=== PATIENT | female | born 1965 | race Caucasian/White ===

== ENCOUNTER 2019-05-18 10:46 | Inpatient (IN) | payer BC ==
[~2019-05-18] VITALS: Ht 165.1 cm; Wt 107.2 kg
[2019-05-18] VITALS (12 sets, daily range): BP systolic 119–155; BP diastolic 74–100
[2019-05-18] MEDS ORDERED: IOHEXOL 300 MG/ML 50 ML VIAL. ONE (11:37)
[2019-05-18] MEDS ORDERED: SURGICEL HEMOSTAT 4X8 EACH. ONE (11:37)
[2019-05-18] MEDS ORDERED: GLUCAGON,HUMAN RECOMBINANT 1 MG/ML VIAL. ONE (11:37)
[2019-05-18] MEDS ORDERED: BUPIVACAINE-EPI 0.25%-1:200000 MPF 30 ML VIAL. ONE (11:40)
[2019-05-18] MEDS ORDERED: IV RINGERS,LACTATED 1000ML 1,000 ML IV SCH (12:41)
[2019-05-18] MEDS ORDERED: PROCHLORPERAZINE 10 MG/2 ML VIAL. IV PRN (12:45)
[2019-05-18] MEDS ORDERED: HYDROmorphone 2 MG/ML VIAL IV PRN (12:45)
[2019-05-18] MEDS ORDERED: fentaNYL PF VIAL 100 MCG/2 ML VIAL IV PRN (12:45)
[2019-05-18] MEDS ORDERED: LIDOCAINE 1% PF 2 ML VIAL. ID PRN (12:45)
[2019-05-18] MEDS ORDERED: MORPHINE SULFATE 2 MG/ML VIAL. IV PRN (12:45)
[2019-05-18] MEDS ORDERED: ONDANSETRON PF 4 MG/2 ML VIAL. IV PRN (12:45)
--- NOTE | 2019-05-18 12:45 | PDOC2 ---
CONSULT Date of Consult Date of Consult DATE: 05/18/19 TIME: 12:39 Reason for Consult Reason for Consult: symptomatic cholelithiasis Referring Physician Referring Physician: CHINTAN Identification/Chief Complaint Chief Complaint RUQ pain Source Source: Chart review, Patient History of Present Illness Reason for Visit: Torri is a 53 yo obese female with recent hx of abdominal pain. Seen in the [facility] ED earlier today where GB US showed cholelithiasis and some minimal GB wall changes. She is brought for cholecystectomy Past Medical History Cardiovascular: No pertinent hx Pulmonary: No pertinent hx GI: GERD Psych: Depression Past Surgical History Past Surgical History: No pertinent history Family History Family History: Cancer Social History No ALCOHOL: none Drugs: None Current Medications Current Medications Current Medications Cefazolin Sodium 3 gm/Dextrose 100 ml @ 200 mls/hr 1X PREOP PRN IV protocol; Start 05/19/19 at 06:00; Stop 05/19/19 at 15:00; Status UNV Glucagon (Glucagen) 1 mg STK-MED ONCE .ROUTE ; Start 05/18/19 at 11:37; Stop 05/18/19 at 12:38; Status DC Iohexol (Omnipaque 300 Mg/ml) 50 ml STK-MED ONCE .ROUTE ; Start 05/18/19 at 11:37; Stop 05/18/19 at 12:38; Status DC Cellulose (Surgicel Hemostat 4x8) 1 each STK-MED ONCE .ROUTE ; Start 05/18/19 at 11:37; Stop 05/18/19 at 12:38; Status DC ROS Review of System negative with exception of present complaints Physical Exam General: Alert, Oriented X3, No acute distress HEENT: Atraumatic Lungs: Normal air movement Heart: Regular rate Abdomen: Soft, Other (mldly TTP in the RUQ) Skin: Other (warm, dry) Images Images US from reviewed Assessment/Plan Assessment/Plan symptomatic cholelithiasis subacute cholecystitis obesity Explained risks of l/s cholecystectomy including but not limited to bleeding, infection, injury to bowel, liver or bile ducts with need for further surgery later, possible open, diarrhea post op. She will proceed Thanks for consult ОЛЕГ FRANKS MD May 18, 2019 12:45
[2019-05-18] MEDS ORDERED: SUCCINYLCHOLINE 200 MG/10 ML VIAL. ONE (12:52)
[2019-05-18] MEDS ORDERED: LIDOCAINE 2% PF 5 ML VIAL. ONE (12:52)
[2019-05-18] MEDS ORDERED: fentaNYL PF VIAL 100 MCG/2 ML VIAL ONE ×3 (12:52→14:26)
[2019-05-18] MEDS ORDERED: PROPOFOL 20 ML IV ONE (12:52)
[2019-05-18] MEDS ORDERED: ROCURONIUM 50 MG/5 ML VIAL. ONE (12:53)
[2019-05-18] MEDS ORDERED: ceFAZolin SODIUM 3 GM in IV DEXTROSE 5% 100ML 100 ML IV PRN (13:00)
[2019-05-18] MEDS ORDERED: DEXAMETHASONE SOD PHOS 4 MG/ML VIAL ONE (13:08)
[2019-05-18] MEDS ORDERED: ONDANSETRON PF 4 MG/2 ML VIAL. ONE (13:08)
[2019-05-18] MEDS ORDERED: DESFLURANE 61 TO 120 MINUTES IH ONE (13:08)
[2019-05-18] MEDS ORDERED: NEOSTIGMINE METHYLSULFATE 5 MG/5 ML SYRINGE. ONE (13:17)
[2019-05-18] MEDS ORDERED: GLYCOPYRROLATE 1 MG/5 ML VIAL. ONE (13:17)
[2019-05-18] MEDS ORDERED: KETOROLAC 30 MG/ML INJ FOR OR. INJ ONE (13:43)
--- NOTE | 2019-05-18 13:54 | RAD ---
EXAM: Intraoperative cholangiogram HISTORY: Cystectomy. COMPARISON: Sonogram obtained on the same date. FINDINGS: 4 fluoroscopic images were obtained during an intraoperative angiogram. The images demonstrate contrast opacification of the biliary tree. There is abrupt cut off involving the distal common bile duct immediately proximal to the ampulla. The total fluoroscopy time is 0.36 minutes. IMPRESSION: Intraoperative cholangiogram demonstrating an abrupt cut off of the distal common bile duct. Correlate for an obstructing lesion. Electronically signed by: Briana Bailey MD (05/18/2019 1:51 PM) [place] [id number]
[2019-05-18] MEDS: IV NORMAL SALINE 1000ML BAG 1,000 ML IV SCH (14:12)
[2019-05-18] MEDS: POTASSIUM CL 20MEQ-0.45% NACL 1,000 ML IV SCH (14:12)
[2019-05-18] MEDS ORDERED: NALOXONE 0.4 MG/ML VIAL. IV PRN (14:15)
[2019-05-18] MEDS ORDERED: IV DEXTROSE 5% 250 ML BAG. IV PRN (14:15)
[2019-05-18] MEDS ORDERED: oxyCODONE/APAP 5/325 1 TAB TABLET PO PRN (14:15)
[2019-05-18] MEDS ORDERED: 0.9 % SODIUM CHLORIDE 10 ML DISP.SYRIN. IV PRN (14:15)
[2019-05-18] MEDS ORDERED: DEXTROSE 50% 25 GM / 50ML DISP.SYRIN. IV PRN (14:15)
[2019-05-18] MEDS: fentaNYL PF VIAL 100 MCG/2 ML VIAL IV PRN ×4 (14:20→15:16)
--- NOTE | 2019-05-18 14:40 | PDOC ---
BRIEF OPERATIVE NOTE Date: May 18, 2019 Pre-Op Diagnosis symptomatic cholelithiasis, subacute cholecystitis Post-Op Diagnosis same with possible choledocholithiasis Procedure Performed l/s cholecystectomy with cholangiograms Surgeon Colby JOHNSTON Anesthesia Type: General Blood Loss 25cc IV Fluid 400cc Specimens Obtained GB Findings edematous GB with multiple stones, stones in the cystic duct, possible stone distal CBD Complications none Operative Note Wk # [id number] ОЛЕГ FRANKS MD May 18, 2019 14:39
[2019-05-18] MEDS: ENOXAPARIN 40 MG/0.4 ML SYRINGE. SQ SCH (15:00)
--- NOTE | 2019-05-18 15:25 | OP ---
DATE OF SURGERY: 05/18/2019 PREOPERATIVE DIAGNOSIS: Symptomatic cholelithiasis and subacute cholecystitis. POSTOPERATIVE DIAGNOSIS: Symptomatic cholelithiasis and subacute cholecystitis with possible choledocholithiasis. PROCEDURE: Laparoscopic cholecystectomy with cholangiogram. SURGEON: Reji Franks MD TECHNICIAN PREVENTATIVE MEDICINE: VICKIE Xiong ANESTHESIA: General endotracheal. ESTIMATED BLOOD LOSS: 25 mL. INTRAVENOUS FLUID: 400. INDICATIONS: The patient is a 53-year-old transferred from [place] with symptomatic cholelithiasis, brought for cholecystectomy. OPERATIVE FINDINGS: The liver was smooth and sharp. The gallbladder was edematous and distended. Cholangiogram showed a normal biliary tree; however, no contrast emptied into the duodenum despite giving 1 mg of glucagon. Remainder of the inspection of the abdomen failed to reveal abnormalities. DESCRIPTION OF PROCEDURE: The patient brought to the operating suite, given a general endotracheal anesthetic, the abdomen prepped and draped in usual sterile fashion. A supraumbilical incision was infiltrated with local anesthetic, incised and a 5 mm Visiport used to gain access into the abdominal cavity, taking care to avoid injury to abdominal contents. Pneumoperitoneum established. Camera inserted. Inspection carried out with results as noted above. With the table in reverse Trendelenburg rolled to the left, the epigastric, midclavicular, and lateral ports were placed under direct vision. The gallbladder was retracted superolaterally and the omental adhesions were carefully swept off with blunt and cautery dissection, avoiding injury to the adjacent bowel. The cystic duct and cystic artery were identified. The duct was clipped on the gallbladder side and opened. Two stones were milked from the cystic duct and good bile flow resulted. Cholangiograms were made. These showed a normal biliary tree, however, no spillage of contrast into the duodenum. In light of this, 1 mg of glucagon was given and after 2 minutes, circulation time, repeat films continued to show possible distal common duct stone. Given the patient's normal labs, preoperatively, I opted to not convert to an open procedure. Catheter removed and the cystic duct, clipped x 3 and divided, taking care to avoid injury or compromise the common duct. An anterior and posterior branch of the cystic artery were clipped and divided and gallbladder freed from the bed and placed in an EndoCatch bag. Hemostasis in the fossa with cautery and a piece of Surgicel. A 19-Citizen Of [place] round Nabil drain brought through the epigastric port out the lateral port, sewn to the skin with a silk stitch and left in the subhepatic space for postoperative drainage. Table returned to level. Gallbladder delivered through the epigastric incision. Epigastric incision closed with interrupted 0 Vicryl suture. Intra-abdominal pressure decreased to 6 cm of water. No bleeding from the epigastric closure or from the midclavicular or lateral port sites or the drain site. Abdomen decompressed. Cam removed, no bleeding seen. Skin incisions closed with subcuticular 4-0 Monocryl. Steri-Strips and sterile dressing applied. The patient awakened from her anesthetic and taken to the recovery room in satisfactory condition. REJI FRANKS MD DR: NAGA/abraham JOB#: [id number] / [id number]
[2019-05-18] MEDS ORDERED: MORPHINE SULFATE 2 MG/ML VIAL. ONE (15:39)
[2019-05-18] MEDS: oxyCODONE/APAP 5/325 1 TAB TABLET PO PRN (17:35)
--- NOTE | 2019-05-18 17:58 | PDOC1 ---
History and Physical Date of Admission Date of Admission DATE: 05/18/19 TIME: 17:49 Identification/Chief Complaint Chief Complaint seen in er in [facility] with several day hx RUQ DISCOMFORT, NOW WORSE Past Medical History Past Medical History Past Medical History Cardiovascular: No pertinent hx Pulmonary: No pertinent hx GI: GERD Psych: Depression Past Surgical History Past Surgical History: No pertinent history Family History Family History: Cancer//// father heart disease age 30 Social History No ALCOHOL: none Drugs: None Cardiovascular: No pertinent hx Pulmonary: No pertinent hx GI: GERD Heme/Onc: No pertinent hx Psych: Depression Rheumatologic: No pertinent hx Infectious disease: No pertinent hx Renal/: No pertinent hx Endocrine: No pertinent hx Past Surgical History Past Surgical History: No pertinent history Family History Family History: Cancer, Hypertension Social History Smoke: No ALCOHOL: none Drugs: None Current Medications Current Medications Current Medications Cefazolin Sodium 3 gm/Dextrose 100 ml @ 200 mls/hr 1X PREOP PRN IV protocol Last administered on 05/18/19at 13:13; Start 05/18/19 at 13:00; Stop 05/19/19 at 12:59 Glucagon (Glucagen) 1 mg STK-MED ONCE .ROUTE ; Start 05/18/19 at 11:37; Stop 05/18/19 at 12:38; Status DC Iohexol (Omnipaque 300 Mg/ml) 50 ml STK-MED ONCE .ROUTE ; Start 05/18/19 at 11:37; Stop 05/18/19 at 12:38; Status DC Cellulose (Surgicel Hemostat 4x8) 1 each STK-MED ONCE .ROUTE Last administered on 05/18/19at 13:52; Start 05/18/19 at 11:37; Stop 05/18/19 at 12:38; Status DC Bupivacaine HCl/ Epinephrine Bitart (Sensorcaine-Epi 0.25%-1:727446 Mpf) 30 ml STK-MED ONCE .ROUTE Last administered on 05/18/19at 13:47; Start 05/18/19 at 11:40; Stop 05/18/19 at 12:40; Status DC Ondansetron HCl (Zofran) 4 mg PRN Q6HRS PRN IV NAUSEA/VOMITING; Start 05/18/19 at 12:45; Stop 05/19/19 at 12:44 Fentanyl Citrate (Fentanyl 2ml Vial) 25 mcg PRN Q5MIN PRN IV MILD PAIN 1-3; Start 05/18/19 at 12:45; Stop 05/19/19 at 12:44 Fentanyl Citrate (Fentanyl 2ml Vial) 50 mcg PRN Q5MIN PRN IV MODERATE TO SEVERE PAIN Last administered on 05/18/19at 15:53; Start 05/18/19 at 12:45; Stop 05/19/19 at 12:44 Morphine Sulfate (Morphine Sulfate) 1 mg PRN Q10MIN PRN IV SEVERE PAIN 7-10 Last administered on 05/18/19at 15:53; Start 05/18/19 at 12:45; Stop 05/19/19 at 12:44 Ringer's Solution 1,000 ml @ 30 mls/hr Q24H IV ; Start 05/18/19 at 12:41; Stop 05/19/19 at 00:40 Lidocaine HCl (Xylocaine-Mpf 1% 2ml Vial) 2 ml 1X PRN PRN ID IV START; Start 05/18/19 at 12:45; Stop 05/19/19 at 12:44 Hydromorphone HCl (Dilaudid) 0.5 mg PRN Q10MIN PRN IV SEV PAIN, Second choice; Start 05/18/19 at 12:45; Stop 05/19/19 at 12:44 Prochlorperazine Edisylate (Compazine) 5 mg PACU PRN PRN IV NAUSEA, MRX1; Start 05/18/19 at 12:45; Stop 05/19/19 at 12:44 Propofol 20 ml @ As Directed STK-MED ONCE IV ; Start 05/18/19 at 12:52; Stop 05/18/19 at 12:53; Status DC Lidocaine HCl (Lidocaine Pf 2% Vial) 5 ml STK-MED ONCE .ROUTE ; Start 05/18/19 at 12:52; Stop 05/18/19 at 12:53; Status DC Fentanyl Citrate (Fentanyl 2ml Vial) 100 mcg STK-MED ONCE .ROUTE ; Start 05/18/19 at 12:52; Stop 05/18/19 at 12:53; Status DC Succinylcholine Chloride (Anectine) 200 mg STK-MED ONCE .ROUTE ; Start 05/18/19 at 12:52; Stop 05/18/19 at 12:53; Status DC Rocuronium [place] (Zemuron) 50 mg STK-MED ONCE .ROUTE ; Start 05/18/19 at 12:53; Stop 05/18/19 at 12:53; Status DC Ondansetron HCl (Zofran) 4 mg STK-MED ONCE .ROUTE ; Start 05/18/19 at 13:08; Stop 05/18/19 at 13:08; Status DC Dexamethasone Sodium Phosphate (Decadron) 4 mg STK-MED ONCE .ROUTE ; Start 05/18/19 at 13:08; Stop 05/18/19 at 13:08; Status DC Desflurane (Suprane) 60 ml STK-MED ONCE IH ; Start 05/18/19 at 13:08; Stop 05/18/19 at 13:08; Status DC Glycopyrrolate (Robinul) 1 mg STK-MED ONCE .ROUTE ; Start 05/18/19 at 13:17; Stop 05/18/19 at 13:17; Status DC Neostigmine Methylsulfate (Neostigmine Methylsulfate) 5 mg STK-MED ONCE .ROUTE ; Start 05/18/19 at 13:17; Stop 05/18/19 at 13:17; Status DC Ketorolac Tromethamine (Toradol For Or Only) 30 mg STK-MED ONCE INJ ; Start 05/18/19 at 13:43; Stop 05/18/19 at 13:43; Status DC Fentanyl Citrate (Fentanyl 2ml Vial) 100 mcg STK-MED ONCE .ROUTE ; Start 05/18/19 at 13:55; Stop 05/18/19 at 13:55; Status DC Diphenhydramine HCl (Benadryl) 25 mg PRN Q6HRS PRN PO ITCHING; Start 05/18/19 at 14:15 Enoxaparin Sodium (Lovenox 40mg Syringe) 40 mg Q24H SQ ; Start 05/18/19 at 15:00 Sodium Chloride (Normal Saline Flush) 3 ml QSHIFT PRN IV AFTER MEDS AND BLOOD DRAWS; Start 05/18/19 at 14:15 Potassium Chloride/Sodium Chloride 1,000 ml @ 100 mls/hr Q10H IV Last administered on 05/18/19at 17:32; Start 05/18/19 at 14:12 Dextrose (Dextrose 50%-Water Syringe) 12.5 gm PRN Q15MIN PRN IV SEE COMMENTS; Start 05/18/19 at 14:15 Dextrose 250 ml PRN Q15MIN PRN IV SEE COMMENTS; Start 05/18/19 at 14:15 Oxycodone/ Acetaminophen (Percocet 5/325) 1 tab PRN Q4HRS PRN PO MILD PAIN, 1ST CHOICE; Start 05/18/19 at 14:15 Oxycodone/ Acetaminophen (Percocet 5/325) 2 tab PRN Q4HRS PRN PO MODERATE PAIN, SEVERE PAIN Last administered on 05/18/19at 17:35; Start 05/18/19 at 14:15 Naloxone HCl (Narcan) 0.4 mg PRN Q2MIN PRN IV SEE INSTRUCTIONS; Start 05/18/19 at 14:15 Sodium Chloride 1,000 ml @ 25 mls/hr Q24H IV ; Start 05/18/19 at 14:12 Hydromorphone HCl (Dilaudid) 1 mg PRN Q4HRS PRN IV PAIN; Start 05/18/19 at 14:15 Docusate Sodium (Colace) 100 mg BID PO ; Start 05/18/19 at 21:00 Ondansetron HCl (Zofran) 4 mg PRN Q6HRS PRN IV NAUESA, 1ST CHOICE; Start 05/18/19 at 14:15 Fentanyl Citrate (Fentanyl 2ml Vial) 100 mcg STK-MED ONCE .ROUTE ; Start 05/18/19 at 14:26; Stop 05/18/19 at 14:27; Status DC Morphine Sulfate (Morphine Sulfate) 2 mg STK-MED ONCE .ROUTE ; Start 05/18/19 at 15:39; Stop 05/18/19 at 15:39; Status DC Allergies Allergies: Coded Allergies: No Known Drug Allergies (Unverified , 05/18/19) ROS Review of System 14 PT ROS OTHERWISE NEG General: No: Chills, Night Sweats, Fatigue, Malaise, Appetite, Other PSYCHOLOGICAL ROS: YES: Depression; No: Anxiety, Behavioral Disorder, Concentration difficultie, Decreased libido, Disorientation, Hallucinations, Hostility, Irritablity, Memory difficulties, Mood Swings, Obsessive thoughts, Physical abuse, Sexual abuse, Sleep disturbances, Suicidal ideation, Other Eyes: No Blurry vision, No Decreased vision, No Double vision, No Dry eyes, No Excessive tearing, No Eye Pain, No Itchy Eyes, No Loss of vision, No Photophobia, No Scotomata, No Uses contacts, No Uses glasses, No Other HEENT: No: Heacaches, Visual Changes, Hearing change, Nasal congestion, Nasal discharge, Oral lesions, Sinus pain, Sore Throat, Epistaxis, Sneezing, Snoring, Tinnitus, Vertigo, Vocal changes, Other ALLERGY AND IMMUNOLOGY: No: Hives, Insect Bite Sensitivity, Itchy/Watery Eyes, Nasal Congestion, Post Nasal Drip, Seasonal Allergies, Other Hematological and Lymphatic: No: Bleeding Problems, Blood Clots, Blood Transfusions, Brusing, Night Sweats, Pallor, Swollen Lymph Nodes, Other ENDOCRINE: No: Breast Changes, Galactorrhea, Hair Pattern Changes, Hot Flashes, Malaise/lethargy, Mood Swings, Palpitations, Polydipsia/polyuria, Skin Changes, Temperature Intolerance, Unexpected Weight Changes, Other Breast: No New/Changing Breast Lumps, No Nipple changes, No Nipple discharge, No Other Respiratory: No: Cough, Hemoptysis, Orthopnea, Pleuritic Pain, Shortness of breath, SOB with excertion, Sputum Changes, Stridor, Tachypnea, Wheezing, Other Cardiovascular: No Chest Pain, No Palpitations, No Orthopnea, No Paroxysmal Noc. Dyspnea, No Edema, No Lt Headedness, No Other Gastrointestinal: Yes Nausea, Yes Abdominal Pain; No Vomiting, No Diarrhea, No Constipation, No Melena, No Hematochezia, No Other Genitourinary: No Dysuria, No Frequency, No Incontinence, No Hematuria, No Retention, No Discharge, No Urgency, No Pain, No Flank Pain, No Other, No , No , No , No , No , No , No Musculoskeletal: No Gait Disturbance, No Joint Pain, No Joint Stiffness, No Joint Swelling, No Muscle Pain, No Muscular Weakness, No Pain In:, No Swelling In:, No Other Neurological: No Behavorial Changes, No Bowel/Bladder ControlChng, No Confusion, No Dizziness, No Gait Disturbance, No Headaches, No Impaired Coord/balance, No Memory Loss, No Numbness/Tingling, No Seizures, No Speech Problems, No Tremors, No Visual Changes, No Weakness, No Other Skin: No Dry Skin, No Eczema, No Hair Changes, No Lumps, No Mole Changes, No Mottling, No Nail Changes, No Pruritus, No Rash, No Skin Lesion Changes, No Other, No Acne Physical Exam General: Alert, Oriented X3, Cooperative, No acute distress, mild distress HEENT: Atraumatic, PERRLA Lungs: Clear to auscultation, Normal air movement Heart: S1S2, RRR, no thrills, no gallops, no murmurs Breasts: Not examined Abdomen: Other (POST OP DRESSING DRY) Rectal Exam: not examined PELVIC: Examination not indicated Extremities: No clubbing, No cyanosis Skin: No rashes, No breakdown Neuro: Normal speech, Strength at 5/5 X4 ext, Sensation intact, Cranial nerves 3-12 NL Psych/Mental Status: Mental status NL, Mood NL Vitals Vitals Vital Signs Date Time Temp Pulse Resp B/P (MAP) Pulse Ox O2 Delivery O2 Flow Rate FiO2 05/18/19 17:35 Room Air 05/18/19 17:15 79 20 143/100 (114) 97 05/18/19 16:45 97.6 97.6 05/18/19 15:53 10.0 Images Images SEX: F EXAM STATUS: ADM IN ORD. PHYSICIAN: ОЛЕГ FRANKS MD REASON: CHOLANGIOGRAMS IN OR WITH C-ARM.FL TIME =.36 MIN,4 IMAGES SAVED. PROCEDURE: CHOLANGIOGRAM INTRAOPERATIVE EXAM: Intraoperative cholangiogram HISTORY: Cystectomy. COMPARISON: Sonogram obtained on the same date. FINDINGS: 4 fluoroscopic images were obtained during an intraoperative angiogram. The images demonstrate contrast opacification of the biliary tree. There is abrupt cut off involving the distal common bile duct immediately proximal to the ampulla. The total fluoroscopy time is 0.36 minutes. IMPRESSION: Intraoperative cholangiogram demonstrating an abrupt cut off of the distal common bile duct. Correlate for an obstructing lesion. Electronically signed by: Briana Bailey MD (05/18/2019 1:51 PM) [place] [id number] DICTATED and SIGNED BY: BRIANA BAILEY MD DATE: 05/18/19 0248 VTE Prophylaxis Ordered VTE Prophylaxis Devices: Yes VTE Pharmacological Prophylaxi: Yes Assessment/Plan Assessment/Plan IMPRESSION 1. Symptomatic gallstones 2. morbid obesity 3. HX MILD DEPRESSION plan 1. iv fluid support 2. post op pain control 3. dr FRANKS FOLLOWING, CONSULTED 4. DVT PROPHYLAXIS 57 MIN PT EXAM, CHART REVIEW, > 50% OF TIME SPENT WITH EXAM, CHART REVIEW, PT CARE COORDINATION KYLIE VU MD May 18, 2019 17:58
[2019-05-18] MEDS: HYDROmorphone 2 MG/ML VIAL IV PRN (19:52)
[2019-05-18] MEDS: DOCUSATE SODIUM 100 MG CAPSULE. PO SCH (20:45)
[2019-05-19] MEDS: POTASSIUM CL 20MEQ-0.45% NACL 1,000 ML IV SCH ×3 (00:12→19:56)
[2019-05-19] MEDS: diphenhydrAMINE HCL 25 MG CAPSULE PO PRN (01:24)
[2019-05-19 03:00] VITALS: BP 125/76
[2019-05-19] MEDS: HYDROmorphone 2 MG/ML VIAL IV PRN ×4 (03:30→22:40)
[2019-05-19 07:00] VITALS: BP 118/80
[2019-05-19] MEDS: oxyCODONE/APAP 5/325 1 TAB TABLET PO PRN ×3 (07:15→21:45)
[2019-05-19] MEDS: DOCUSATE SODIUM 100 MG CAPSULE. PO SCH ×2 (09:00→19:55)
[2019-05-19 10:15] LABS: BASO % 0 % (0-3); EOS # 0.1 x10^3/uL (0.0-0.7); EOS % 1 % (0-3); HEMATOCRIT 36.5 % (36.0-47.0); HEMOGLOBIN 11.9 g/dL (12.0-15.5); LYMPH # 2.4 x10^3/uL (1.0-4.8); LYMPH % 27 % (24-48); MEAN CORPUSCULAR HEMOGLOBIN 25 pg (25-35); MEAN CORPUSCULAR HGB CONC 33 g/dL (31-37); MEAN CORPUSCULAR VOLUME 77 fL (79-100); MONO # 0.3 x10^3/uL (0.0-1.1); MONO % 4 % (0-9); NEUT # 5.9 x10^3/uL (1.8-7.7); NEUT % 68 % (31-73); PLATELET COUNT 444 x10^3/uL (140-400); RED BLOOD COUNT 4.72 x10^6/uL (3.50-5.40); RED CELL DISTRIBUTION WIDTH 16.2 % (11.5-14.5); WHITE BLOOD COUNT 8.7 x10^3/uL (4.0-11.0)
[2019-05-19 10:44] LABS: ALBUMIN/GLOBULIN RATIO 0.8 (1.0-1.7); CALCIUM 8.7 mg/dL (8.5-10.1); CREATININE 0.7 mg/dL (0.6-1.0); DIRECT BILIRUBIN 0.3 mg/dL (0.0-0.2); GFR 87.2; TOTAL BILIRUBIN 0.8 mg/dL (0.2-1.0); TOTAL PROTEIN 6.9 g/dL (6.4-8.2)
[2019-05-19 11:00] VITALS: BP 129/85
--- NOTE | 2019-05-19 11:43 | PDOC ---
PROGRESS NOTES Chief Complaint Chief Complaint Symptomatic gallstones Morbid obesity MILD DEPRESSION History of Present Illness History of Present Illness Ms Serna is a 53yo F w/ PMHx GERD, depression who presents with abdominal pain, found with acute cholecystitis, went for uncomplicated, successful lap jacque 05/18/19, however intraoperative cholangiogram shows abrupt cut-off of dye in CBD without flow into the duodenum. Feeling ok this morning prior to eating. However, after eating has worse RUQ pain, states she normally tolerates pain well. No SOB or CP Plan Consult GI for likely CBD obstruction Vitals Vitals Vital Signs Date Time Temp Pulse Resp B/P (MAP) Pulse Ox O2 Delivery O2 Flow Rate FiO2 05/19/19 11:00 97.8 78 16 129/85 (100) 97 Room Air 97.8 05/19/19 04:06 10.0 Physical Exam General: Alert, Oriented X3, Cooperative, No acute distress, mild distress Heart: Regular rate Abdomen: Other (POST OP DRESSING DRY) Extremities: No clubbing, No cyanosis Skin: No rashes, No breakdown Labs LABS Laboratory Tests Test 05/19/19 08:55 White Blood Count 8.7 x10^3/uL (4.0-11.0) Red Blood Count 4.72 x10^6/uL (3.50-5.40) Hemoglobin 11.9 g/dL (12.0-15.5) Hematocrit 36.5 % (36.0-47.0) Mean Corpuscular Volume 77 fL (79-100) Mean Corpuscular Hemoglobin 25 pg (25-35) Mean Corpuscular Hemoglobin Concent 33 g/dL (31-37) Red Cell Distribution Width 16.2 % (11.5-14.5) Platelet Count 444 x10^3/uL (140-400) Neutrophils (%) (Auto) 68 % (31-73) Lymphocytes (%) (Auto) 27 % (24-48) Monocytes (%) (Auto) 4 % (0-9) Eosinophils (%) (Auto) 1 % (0-3) Basophils (%) (Auto) 0 % (0-3) Neutrophils # (Auto) 5.9 x10^3/uL (1.8-7.7) Lymphocytes # (Auto) 2.4 x10^3/uL (1.0-4.8) Monocytes # (Auto) 0.3 x10^3/uL (0.0-1.1) Eosinophils # (Auto) 0.1 x10^3/uL (0.0-0.7) Basophils # (Auto) 0.0 x10^3/uL (0.0-0.2) Sodium Level 139 mmol/L (136-145) Potassium Level 4.0 mmol/L (3.5-5.1) Chloride Level 103 mmol/L (98-107) Carbon Dioxide Level 26 mmol/L (21-32) Anion Gap 10 (6-14) Blood Urea Nitrogen 5 mg/dL (7-20) Creatinine 0.7 mg/dL (0.6-1.0) Estimated GFR (Cockcroft-Gault) 87.2 BUN/Creatinine Ratio 7 (6-20) Glucose Level 130 mg/dL (70-99) Calcium Level 8.7 mg/dL (8.5-10.1) Total Bilirubin 0.8 mg/dL (0.2-1.0) Direct Bilirubin 0.3 mg/dL (0.0-0.2) Aspartate Amino Transf (AST/SGOT) 214 U/L (15-37) Alanine Aminotransferase (ALT/SGPT) 318 U/L (14-59) Alkaline Phosphatase 172 U/L (46-116) Total Protein 6.9 g/dL (6.4-8.2) Albumin 3.0 g/dL (3.4-5.0) Albumin/Globulin Ratio 0.8 (1.0-1.7) Comment Review of Relevant I have reviewed the following items kirill (where applicable) has been applied. Labs Laboratory Tests Test 05/19/19 08:55 White Blood Count 8.7 x10^3/uL (4.0-11.0) Red Blood Count 4.72 x10^6/uL (3.50-5.40) Hemoglobin 11.9 g/dL (12.0-15.5) Hematocrit 36.5 % (36.0-47.0) Mean Corpuscular Volume 77 fL (79-100) Mean Corpuscular Hemoglobin 25 pg (25-35) Mean Corpuscular Hemoglobin Concent 33 g/dL (31-37) Red Cell Distribution Width 16.2 % (11.5-14.5) Platelet Count 444 x10^3/uL (140-400) Neutrophils (%) (Auto) 68 % (31-73) Lymphocytes (%) (Auto) 27 % (24-48) Monocytes (%) (Auto) 4 % (0-9) Eosinophils (%) (Auto) 1 % (0-3) Basophils (%) (Auto) 0 % (0-3) Neutrophils # (Auto) 5.9 x10^3/uL (1.8-7.7) Lymphocytes # (Auto) 2.4 x10^3/uL (1.0-4.8) Monocytes # (Auto) 0.3 x10^3/uL (0.0-1.1) Eosinophils # (Auto) 0.1 x10^3/uL (0.0-0.7) Basophils # (Auto) 0.0 x10^3/uL (0.0-0.2) Sodium Level 139 mmol/L (136-145) Potassium Level 4.0 mmol/L (3.5-5.1) Chloride Level 103 mmol/L (98-107) Carbon Dioxide Level 26 mmol/L (21-32) Anion Gap 10 (6-14) Blood Urea Nitrogen 5 mg/dL (7-20) Creatinine 0.7 mg/dL (0.6-1.0) Estimated GFR (Cockcroft-Gault) 87.2 BUN/Creatinine Ratio 7 (6-20) Glucose Level 130 mg/dL (70-99) Calcium Level 8.7 mg/dL (8.5-10.1) Total Bilirubin 0.8 mg/dL (0.2-1.0) Direct Bilirubin 0.3 mg/dL (0.0-0.2) Aspartate Amino Transf (AST/SGOT) 214 U/L (15-37) Alanine Aminotransferase (ALT/SGPT) 318 U/L (14-59) Alkaline Phosphatase 172 U/L (46-116) Total Protein 6.9 g/dL (6.4-8.2) Albumin 3.0 g/dL (3.4-5.0) Albumin/Globulin Ratio 0.8 (1.0-1.7) Laboratory Tests Test 05/19/19 08:55 White Blood Count 8.7 x10^3/uL (4.0-11.0) Red Blood Count 4.72 x10^6/uL (3.50-5.40) Hemoglobin 11.9 g/dL (12.0-15.5) Hematocrit 36.5 % (36.0-47.0) Mean Corpuscular Volume 77 fL (79-100) Mean Corpuscular Hemoglobin 25 pg (25-35) Mean Corpuscular Hemoglobin Concent 33 g/dL (31-37) Red Cell Distribution Width 16.2 % (11.5-14.5) Platelet Count 444 x10^3/uL (140-400) Neutrophils (%) (Auto) 68 % (31-73) Lymphocytes (%) (Auto) 27 % (24-48) Monocytes (%) (Auto) 4 % (0-9) Eosinophils (%) (Auto) 1 % (0-3) Basophils (%) (Auto) 0 % (0-3) Neutrophils # (Auto) 5.9 x10^3/uL (1.8-7.7) Lymphocytes # (Auto) 2.4 x10^3/uL (1.0-4.8) Monocytes # (Auto) 0.3 x10^3/uL (0.0-1.1) Eosinophils # (Auto) 0.1 x10^3/uL (0.0-0.7) Basophils # (Auto) 0.0 x10^3/uL (0.0-0.2) Sodium Level 139 mmol/L (136-145) Potassium Level 4.0 mmol/L (3.5-5.1) Chloride Level 103 mmol/L (98-107) Carbon Dioxide Level 26 mmol/L (21-32) Anion Gap 10 (6-14) Blood Urea Nitrogen 5 mg/dL (7-20) Creatinine 0.7 mg/dL (0.6-1.0) Estimated GFR (Cockcroft-Gault) 87.2 BUN/Creatinine Ratio 7 (6-20) Glucose Level 130 mg/dL (70-99) Calcium Level 8.7 mg/dL (8.5-10.1) Total Bilirubin 0.8 mg/dL (0.2-1.0) Direct Bilirubin 0.3 mg/dL (0.0-0.2) Aspartate Amino Transf (AST/SGOT) 214 U/L (15-37) Alanine Aminotransferase (ALT/SGPT) 318 U/L (14-59) Alkaline Phosphatase 172 U/L (46-116) Total Protein 6.9 g/dL (6.4-8.2) Albumin 3.0 g/dL (3.4-5.0) Albumin/Globulin Ratio 0.8 (1.0-1.7) Medications Current Medications Cefazolin Sodium 3 gm/Dextrose 100 ml @ 200 mls/hr 1X PREOP PRN IV protocol Last administered on 05/18/19at 13:13; Start 05/18/19 at 13:00; Stop 05/19/19 at 12:59 Glucagon (Glucagen) 1 mg STK-MED ONCE .ROUTE ; Start 05/18/19 at 11:37; Stop 05/18/19 at 12:38; Status DC Iohexol (Omnipaque 300 Mg/ml) 50 ml STK-MED ONCE .ROUTE ; Start 05/18/19 at 11:37; Stop 05/18/19 at 12:38; Status DC Cellulose (Surgicel Hemostat 4x8) 1 each STK-MED ONCE .ROUTE Last administered on 05/18/19at 13:52; Start 05/18/19 at 11:37; Stop 05/18/19 at 12:38; Status DC Bupivacaine HCl/ Epinephrine Bitart (Sensorcaine-Epi 0.25%-1:319483 Mpf) 30 ml STK-MED ONCE .ROUTE Last administered on 05/18/19at 13:47; Start 05/18/19 at 11:40; Stop 05/18/19 at 12:40; Status DC Ondansetron HCl (Zofran) 4 mg PRN Q6HRS PRN IV NAUSEA/VOMITING; Start 05/18/19 at 12:45; Stop 05/19/19 at 12:44 Fentanyl Citrate (Fentanyl 2ml Vial) 25 mcg PRN Q5MIN PRN IV MILD PAIN 1-3; Start 05/18/19 at 12:45; Stop 05/19/19 at 12:44 Fentanyl Citrate (Fentanyl 2ml Vial) 50 mcg PRN Q5MIN PRN IV MODERATE TO SEVERE PAIN Last administered on 05/18/19at 15:53; Start 05/18/19 at 12:45; Stop 05/19/19 at 12:44 Morphine Sulfate (Morphine Sulfate) 1 mg PRN Q10MIN PRN IV SEVERE PAIN 7-10 Last administered on 05/18/19at 15:53; Start 05/18/19 at 12:45; Stop 05/19/19 at 12:44 Ringer's Solution 1,000 ml @ 30 mls/hr Q24H IV ; Start 05/18/19 at 12:41; Stop 05/19/19 at 00:40; Status DC Lidocaine HCl (Xylocaine-Mpf 1% 2ml Vial) 2 ml 1X PRN PRN ID IV START; Start 05/18/19 at 12:45; Stop 05/19/19 at 12:44 Hydromorphone HCl (Dilaudid) 0.5 mg PRN Q10MIN PRN IV SEV PAIN, Second choice; Start 05/18/19 at 12:45; Stop 05/19/19 at 12:44 Prochlorperazine Edisylate (Compazine) 5 mg PACU PRN PRN IV NAUSEA, MRX1; Start 05/18/19 at 12:45; Stop 05/19/19 at 12:44 Propofol 20 ml @ As Directed STK-MED ONCE IV ; Start 05/18/19 at 12:52; Stop 05/18/19 at 12:53; Status DC Lidocaine HCl (Lidocaine Pf 2% Vial) 5 ml STK-MED ONCE .ROUTE ; Start 05/18/19 at 12:52; Stop 05/18/19 at 12:53; Status DC Fentanyl Citrate (Fentanyl 2ml Vial) 100 mcg STK-MED ONCE .ROUTE ; Start 05/18/19 at 12:52; Stop 05/18/19 at 12:53; Status DC Succinylcholine Chloride (Anectine) 200 mg STK-MED ONCE .ROUTE ; Start 05/18/19 at 12:52; Stop 05/18/19 at 12:53; Status DC Rocuronium [place] (Zemuron) 50 mg STK-MED ONCE .ROUTE ; Start 05/18/19 at 12:53; Stop 05/18/19 at 12:53; Status DC Ondansetron HCl (Zofran) 4 mg STK-MED ONCE .ROUTE ; Start 05/18/19 at 13:08; Stop 05/18/19 at 13:08; Status DC Dexamethasone Sodium Phosphate (Decadron) 4 mg STK-MED ONCE .ROUTE ; Start 05/18/19 at 13:08; Stop 05/18/19 at 13:08; Status DC Desflurane (Suprane) 60 ml STK-MED ONCE IH ; Start 05/18/19 at 13:08; Stop 05/18/19 at 13:08; Status DC Glycopyrrolate (Robinul) 1 mg STK-MED ONCE .ROUTE ; Start 05/18/19 at 13:17; Stop 05/18/19 at 13:17; Status DC Neostigmine Methylsulfate (Neostigmine Methylsulfate) 5 mg STK-MED ONCE .ROUTE ; Start 05/18/19 at 13:17; Stop 05/18/19 at 13:17; Status DC Ketorolac Tromethamine (Toradol For Or Only) 30 mg STK-MED ONCE INJ ; Start 05/18/19 at 13:43; Stop 05/18/19 at 13:43; Status DC Fentanyl Citrate (Fentanyl 2ml Vial) 100 mcg STK-MED ONCE .ROUTE ; Start 05/18/19 at 13:55; Stop 05/18/19 at 13:55; Status DC Diphenhydramine HCl (Benadryl) 25 mg PRN Q6HRS PRN PO ITCHING Last administered on 05/19/19at 01:24; Start 05/18/19 at 14:15 Enoxaparin Sodium (Lovenox 40mg Syringe) 40 mg Q24H SQ ; Start 05/18/19 at 15:00 Sodium Chloride (Normal Saline Flush) 3 ml QSHIFT PRN IV AFTER MEDS AND BLOOD DRAWS; Start 05/18/19 at 14:15 Potassium Chloride/Sodium Chloride 1,000 ml @ 100 mls/hr Q10H IV Last administered on 05/19/19at 03:22; Start 05/18/19 at 14:12 Dextrose (Dextrose 50%-Water Syringe) 12.5 gm PRN Q15MIN PRN IV SEE COMMENTS; Start 05/18/19 at 14:15 Dextrose 250 ml PRN Q15MIN PRN IV SEE COMMENTS; Start 05/18/19 at 14:15 Oxycodone/ Acetaminophen (Percocet 5/325) 1 tab PRN Q4HRS PRN PO MILD PAIN, 1ST CHOICE Last administered on 05/18/19at 23:50; Start 05/18/19 at 14:15 Oxycodone/ Acetaminophen (Percocet 5/325) 2 tab PRN Q4HRS PRN PO MODERATE PAIN, SEVERE PAIN Last administered on 05/19/19at 07:15; Start 05/18/19 at 14:15 Naloxone HCl (Narcan) 0.4 mg PRN Q2MIN PRN IV SEE INSTRUCTIONS; Start 05/18/19 at 14:15 Sodium Chloride 1,000 ml @ 25 mls/hr Q24H IV ; Start 05/18/19 at 14:12 Hydromorphone HCl (Dilaudid) 1 mg PRN Q4HRS PRN IV PAIN Last administered on 05/19/19at 09:54; Start 05/18/19 at 14:15 Docusate Sodium (Colace) 100 mg BID PO Last administered on 05/18/19at 20:46; Start 05/18/19 at 21:00 Ondansetron HCl (Zofran) 4 mg PRN Q6HRS PRN IV NAUESA, 1ST CHOICE; Start 05/18/19 at 14:15 Fentanyl Citrate (Fentanyl 2ml Vial) 100 mcg STK-MED ONCE .ROUTE ; Start 05/18/19 at 14:26; Stop 05/18/19 at 14:27; Status DC Morphine Sulfate (Morphine Sulfate) 2 mg STK-MED ONCE .ROUTE ; Start 05/18/19 at 15:39; Stop 05/18/19 at 15:39; Status DC Vitals/I & O Vital Sign - Last 24 Hours 05/18/19 05/18/19 05/18/19 05/18/19 12:18 14:20 14:20 14:35 Temp 97.9 98.1 98.1 97.9 98.1 98.1 Pulse 80 86 86 Resp 24 22 18 B/P (MAP) 168/86 157/87 148/87 Pulse Ox 97 99 100 O2 Delivery Room Air Simple Mask Mask Simple Mask O2 Flow Rate 10 10 10 05/18/19 05/18/19 05/18/19 05/18/19 14:41 14:50 14:55 15:05 Temp 98.1 98.1 98.1 98.1 Pulse 71 71 Resp 18 20 20 20 B/P (MAP) 151/86 137/85 Pulse Ox 100 100 100 97 O2 Delivery Simple Mask Simple Mask Simple Mask Room Air Simple Mask O2 Flow Rate 10.0 10.0 10.0 05/18/19 05/18/19 05/18/19 05/18/19 15:16 15:18 15:20 15:53 Temp 98.1 98.1 Pulse 67 Resp 20 18 B/P (MAP) 132/79 Pulse Ox 97 97 100 O2 Delivery Room Air Mask Room Air Aerosol Mask Simple Mask O2 Flow Rate 10.0 10.0 05/18/19 05/18/19 05/18/19 05/18/19 15:53 16:00 16:15 16:30 Temp 97.8 97.8 Pulse 70 72 Resp 18 18 B/P (MAP) 145/95 (112) 139/95 (110) 145/99 (114) Pulse Ox 97 97 O2 Delivery Room Air Room Air 05/18/19 05/18/19 05/18/19 05/18/19 16:42 16:45 17:15 17:35 Temp 97.6 97.6 Pulse 69 79 Resp 20 20 B/P (MAP) 155/94 (114) 143/100 (114) Pulse Ox 98 97 O2 Delivery Room Air Room Air Room Air Room Air 05/18/19 05/18/19 05/18/19 05/18/19 17:45 18:43 19:30 19:47 Temp 98.0 97.6 98.0 97.6 Pulse 82 84 68 Resp 18 18 B/P (MAP) 148/96 (113) 141/83 (102) 120/86 (97) Pulse Ox 98 97 93 O2 Delivery Room Air Room Air Room Air Room Air 05/18/19 05/18/19 05/18/19 05/18/19 19:56 20:00 20:00 20:15 Pulse 66 86 Resp 20 B/P (MAP) 138/86 (103) 119/74 (89) Pulse Ox 97 93 96 O2 Delivery Room Air Room Air Room Air Room Air 05/18/19 05/18/19 05/18/19 05/18/19 21:14 22:59 23:00 23:50 Temp 97.4 97.4 Pulse 90 64 Resp 20 16 20 B/P (MAP) 150/99 (116) 123/88 (100) Pulse Ox 98 99 93 O2 Delivery Room Air Room Air Room Air Room Air 05/19/19 05/19/19 05/19/19 05/19/19 01:28 03:00 03:33 04:06 Temp 98.0 98.0 Pulse 65 Resp 20 16 20 B/P (MAP) 125/76 (92) Pulse Ox 96 93 93 O2 Delivery Room Air Room Air Room Air O2 Flow Rate 10.0 05/19/19 05/19/19 05/19/19 05/19/19 07:00 07:15 09:54 09:54 Temp 97.8 97.8 Pulse 67 Resp 16 20 B/P (MAP) 118/80 (93) Pulse Ox 97 93 O2 Delivery Room Air Room Air Room Air Room Air 05/19/19 11:00 Temp 97.8 97.8 Pulse 78 Resp 16 B/P (MAP) 129/85 (100) Pulse Ox 97 O2 Delivery Room Air Intake and Output 05/18/19 05/18/19 05/19/19 14:59 22:59 06:59 Intake Total 522 ml 180 ml 350 ml Output Total 0 ml 20 ml 1055 ml Balance 522 ml 160 ml -705 ml JACKIE ADAMSON MD May 19, 2019 11:43
--- NOTE | 2019-05-19 12:12 | NUR ---
SS following for discharge planning. SS reviewed pt chart. Pt is from home with spouse and is currently on room air. No discharge needs noted at this time. SS will continue to follow for discharge planning.
--- NOTE | 2019-05-19 13:05 | PDOC2 ---
GI CONSULT Reason For Consult: likely CBD obstruction found intraoperatively HPI: HPI: 53 y/o female transferred from [facility]. Central back pain last Friday - initially attributed to cleaning her house (goes between home w/ in [place] and caring for mother in [place]). Then developed RUQ pain ("severe") w/ n/v on , went to ER, pain improved w/ medications and was discharged. Had another mild episode of RUQ pain on Friday that resolved. Severe pain recurred on Friday night, back to ER. LFTs on 05/18: bili 0.4, AST 157, ALT 91, Alk Phos 134. Cholelithiasis w/ normal CBD (5mm) on US. Now s/p cholecystectomy. IOC showed "abrupt cut off of the distal common bile duct." LFTs today: bili 0.3, AST 214, ALT 318, Alk Phos 172. Tolerating PO, has a worsening sharp RUQ pain radiating to back w/ movement. H/o GERD on omeprazole BID. No dysphagia. No chronic n/v or abd pain. No diarrhea or constipation (though no stool since surgery). No hematochezia, melena, hematemesis. Intentional weight loss of 30 lbs x 1 year w/ Herbal Life shakes. No NSAIDs. Previous EGD and colonoscopy w/ Dr. Chavira, also had EGD and colonoscopy in [facility] in 2011 or 2012 - reports "ulcer" then while taking Advil for sinus pain, also recalls h/o diverticulosis. If she needs an ERCP she wants it done quick because she's in pain. PMH: PMH: GERD, PUD, diverticulosis, hypothyroidism, depression cholecystectomy FH: Family History: No pertinent hx (no GB disease or GI cancers) Social History: Smoke: No ALCOHOL: none Drugs: None ROS: GEN: Denies fevers, chills, sweats HEENT: Denies blurred vision, sore throat CV: Denies chest pain RESP: Denies shortness of air, cough GI: Per HPI : Denies hematuria, dysuria ENDO: Denies weight changes NEURO: Denies confusion, dizziness MSK: Denies weakness, joint pain/swelling SKIN: Denies jaundice, pruritus Vitals: Vitals: Vital Signs Date Time Temp Pulse Resp B/P (MAP) Pulse Ox O2 Delivery O2 Flow Rate FiO2 05/19/19 11:57 Room Air 05/19/19 11:00 97.8 78 16 129/85 (100) 97 97.8 05/19/19 04:06 10.0 Labs: Labs: Laboratory Tests Test 05/19/19 08:55 White Blood Count 8.7 x10^3/uL (4.0-11.0) Red Blood Count 4.72 x10^6/uL (3.50-5.40) Hemoglobin 11.9 g/dL (12.0-15.5) Hematocrit 36.5 % (36.0-47.0) Mean Corpuscular Volume 77 fL (79-100) Mean Corpuscular Hemoglobin 25 pg (25-35) Mean Corpuscular Hemoglobin Concent 33 g/dL (31-37) Red Cell Distribution Width 16.2 % (11.5-14.5) Platelet Count 444 x10^3/uL (140-400) Neutrophils (%) (Auto) 68 % (31-73) Lymphocytes (%) (Auto) 27 % (24-48) Monocytes (%) (Auto) 4 % (0-9) Eosinophils (%) (Auto) 1 % (0-3) Basophils (%) (Auto) 0 % (0-3) Neutrophils # (Auto) 5.9 x10^3/uL (1.8-7.7) Lymphocytes # (Auto) 2.4 x10^3/uL (1.0-4.8) Monocytes # (Auto) 0.3 x10^3/uL (0.0-1.1) Eosinophils # (Auto) 0.1 x10^3/uL (0.0-0.7) Basophils # (Auto) 0.0 x10^3/uL (0.0-0.2) Sodium Level 139 mmol/L (136-145) Potassium Level 4.0 mmol/L (3.5-5.1) Chloride Level 103 mmol/L (98-107) Carbon Dioxide Level 26 mmol/L (21-32) Anion Gap 10 (6-14) Blood Urea Nitrogen 5 mg/dL (7-20) Creatinine 0.7 mg/dL (0.6-1.0) Estimated GFR (Cockcroft-Gault) 87.2 BUN/Creatinine Ratio 7 (6-20) Glucose Level 130 mg/dL (70-99) Calcium Level 8.7 mg/dL (8.5-10.1) Total Bilirubin 0.8 mg/dL (0.2-1.0) Direct Bilirubin 0.3 mg/dL (0.0-0.2) Aspartate Amino Transf (AST/SGOT) 214 U/L (15-37) Alanine Aminotransferase (ALT/SGPT) 318 U/L (14-59) Alkaline Phosphatase 172 U/L (46-116) Total Protein 6.9 g/dL (6.4-8.2) Albumin 3.0 g/dL (3.4-5.0) Albumin/Globulin Ratio 0.8 (1.0-1.7) Allergies: Coded Allergies: No Known Drug Allergies (Unverified , 05/18/19) Medications: Current Medications Medications (Trade) Dose Ordered Sig/Juan M Route PRN Reason Start Time Stop Time Status Last Admin Dose Admin Cefazolin Sodium 3 gm/Dextrose 100 ml @ 200 mls/hr 1X PREOP PRN IV protocol 05/18/19 13:00 05/19/19 12:59 05/18/19 13:13 Diphenhydramine HCl (Benadryl) 25 mg PRN Q6HRS PRN PO ITCHING 05/18/19 14:15 05/19/19 01:24 Potassium Chloride/Sodium Chloride 1,000 ml @ 100 mls/hr Q10H IV 05/18/19 14:12 05/19/19 03:22 Oxycodone/ Acetaminophen (Percocet 5/325) 1 tab PRN Q4HRS PRN PO MILD PAIN, 1ST CHOICE 05/18/19 14:15 05/18/19 23:50 Oxycodone/ Acetaminophen (Percocet 5/325) 2 tab PRN Q4HRS PRN PO MODERATE PAIN, SEVERE PAIN 05/18/19 14:15 05/19/19 07:15 Hydromorphone HCl (Dilaudid) 1 mg PRN Q4HRS PRN IV PAIN 05/18/19 14:15 05/19/19 09:54 Docusate Sodium (Colace) 100 mg BID PO 05/18/19 21:00 05/18/19 20:46 Imaging: Imaging: IOC 05/18 IMPRESSION: Intraoperative cholangiogram demonstrating an abrupt cut off of the distal common bile duct. Correlate for an obstructing lesion. KUB 05/19 pending PE: GEN: NAD HEENT: Atraumatic, PERRL LUNGS: CTAB HEART: RRR ABD: NABS, S/ND, RUQ discomfort, drain ?bilious EXTREMITY: No edema SKIN: No rashes, no jaundice NEURO/PSYCH: A & O �3 A/P: A/P: RUQ pain/flank/back pain Elevated LFTs - normal bili, others worse Microcytic anemia Cholelithiasis s/p cholecystectomy w/ abnormal IOC GERD, h/o PUD - on PPI CRC screen - UTD Diverticulosis -- Will review w/ Dr. Chavira. Requests PPI - will add. MATT HARTLEY May 19, 2019 13:05
[2019-05-19] MEDS: ONDANSETRON PF 4 MG/2 ML VIAL. IV PRN ×2 (14:04→19:56)
[2019-05-19] MEDS: IV NORMAL SALINE 1000ML BAG 1,000 ML IV SCH (14:12)
--- NOTE | 2019-05-19 14:19 | RAD ---
KUB History: Follow-up cholangiogram. Technique: Supine view the abdomen. Comparison: Cholangiogram May 18, 2019. Findings: Cholecystectomy clips noted. Drain projecting over the right upper quadrant. No contrast is noted within the region of the common bile duct. The upper abdomen is not included in the image. Air and stool scattered throughout the imaged colon. Several mildly prominent air-filled loops of small bowel. Nonobstructive bowel gas pattern. Multilevel lumbar spondylosis. Impression: 1. No retained contrast is noted in the region of the common bile duct. The region of the intrahepatic ducts are not included in the image. If clinically indicated, recommend repeat radiographs. 2. Several mildly prominent air-filled loops of small bowel, may represent ileus. Electronically signed by: Rajendra Ponce DO (05/19/2019 2:16 PM) [id number]
[2019-05-19 15:00] VITALS: BP 119/81
[2019-05-19] MEDS: ENOXAPARIN 40 MG/0.4 ML SYRINGE. SQ SCH (15:00)
--- NOTE | 2019-05-19 16:05 | PDOC ---
SURGICAL PROGRESS NOTE Subjective has RUQ pain "when I move" Vital Signs Vital Signs Date Time Temp Pulse Resp B/P (MAP) Pulse Ox O2 Delivery O2 Flow Rate FiO2 05/19/19 15:15 Room Air 05/19/19 15:00 97.8 80 16 119/81 (94) 96 97.8 05/19/19 04:06 10.0 I&O Intake and Output 05/19/19 07:00 Intake Total 1052 ml Output Total 1075 ml Balance -23 ml Intake Oral 530 ml IV Total 522 ml Output Urine Total 1000 ml Drainage Total 55 ml Estimated Blood Loss 20 ml # Voids 2 PATIENT HAS A GILL: No General: Alert, No acute distress Labs Laboratory Tests Test 05/19/19 08:55 White Blood Count 8.7 x10^3/uL (4.0-11.0) Red Blood Count 4.72 x10^6/uL (3.50-5.40) Hemoglobin 11.9 g/dL (12.0-15.5) Hematocrit 36.5 % (36.0-47.0) Mean Corpuscular Volume 77 fL (79-100) Mean Corpuscular Hemoglobin 25 pg (25-35) Mean Corpuscular Hemoglobin Concent 33 g/dL (31-37) Red Cell Distribution Width 16.2 % (11.5-14.5) Platelet Count 444 x10^3/uL (140-400) Neutrophils (%) (Auto) 68 % (31-73) Lymphocytes (%) (Auto) 27 % (24-48) Monocytes (%) (Auto) 4 % (0-9) Eosinophils (%) (Auto) 1 % (0-3) Basophils (%) (Auto) 0 % (0-3) Neutrophils # (Auto) 5.9 x10^3/uL (1.8-7.7) Lymphocytes # (Auto) 2.4 x10^3/uL (1.0-4.8) Monocytes # (Auto) 0.3 x10^3/uL (0.0-1.1) Eosinophils # (Auto) 0.1 x10^3/uL (0.0-0.7) Basophils # (Auto) 0.0 x10^3/uL (0.0-0.2) Sodium Level 139 mmol/L (136-145) Potassium Level 4.0 mmol/L (3.5-5.1) Chloride Level 103 mmol/L (98-107) Carbon Dioxide Level 26 mmol/L (21-32) Anion Gap 10 (6-14) Blood Urea Nitrogen 5 mg/dL (7-20) Creatinine 0.7 mg/dL (0.6-1.0) Estimated GFR (Cockcroft-Gault) 87.2 BUN/Creatinine Ratio 7 (6-20) Glucose Level 130 mg/dL (70-99) Calcium Level 8.7 mg/dL (8.5-10.1) Total Bilirubin 0.8 mg/dL (0.2-1.0) Direct Bilirubin 0.3 mg/dL (0.0-0.2) Aspartate Amino Transf (AST/SGOT) 214 U/L (15-37) Alanine Aminotransferase (ALT/SGPT) 318 U/L (14-59) Alkaline Phosphatase 172 U/L (46-116) Total Protein 6.9 g/dL (6.4-8.2) Albumin 3.0 g/dL (3.4-5.0) Albumin/Globulin Ratio 0.8 (1.0-1.7) Laboratory Tests Test 05/19/19 08:55 White Blood Count 8.7 x10^3/uL (4.0-11.0) Red Blood Count 4.72 x10^6/uL (3.50-5.40) Hemoglobin 11.9 g/dL (12.0-15.5) Hematocrit 36.5 % (36.0-47.0) Mean Corpuscular Volume 77 fL (79-100) Mean Corpuscular Hemoglobin 25 pg (25-35) Mean Corpuscular Hemoglobin Concent 33 g/dL (31-37) Red Cell Distribution Width 16.2 % (11.5-14.5) Platelet Count 444 x10^3/uL (140-400) Neutrophils (%) (Auto) 68 % (31-73) Lymphocytes (%) (Auto) 27 % (24-48) Monocytes (%) (Auto) 4 % (0-9) Eosinophils (%) (Auto) 1 % (0-3) Basophils (%) (Auto) 0 % (0-3) Neutrophils # (Auto) 5.9 x10^3/uL (1.8-7.7) Lymphocytes # (Auto) 2.4 x10^3/uL (1.0-4.8) Monocytes # (Auto) 0.3 x10^3/uL (0.0-1.1) Eosinophils # (Auto) 0.1 x10^3/uL (0.0-0.7) Basophils # (Auto) 0.0 x10^3/uL (0.0-0.2) Sodium Level 139 mmol/L (136-145) Potassium Level 4.0 mmol/L (3.5-5.1) Chloride Level 103 mmol/L (98-107) Carbon Dioxide Level 26 mmol/L (21-32) Anion Gap 10 (6-14) Blood Urea Nitrogen 5 mg/dL (7-20) Creatinine 0.7 mg/dL (0.6-1.0) Estimated GFR (Cockcroft-Gault) 87.2 BUN/Creatinine Ratio 7 (6-20) Glucose Level 130 mg/dL (70-99) Calcium Level 8.7 mg/dL (8.5-10.1) Total Bilirubin 0.8 mg/dL (0.2-1.0) Direct Bilirubin 0.3 mg/dL (0.0-0.2) Aspartate Amino Transf (AST/SGOT) 214 U/L (15-37) Alanine Aminotransferase (ALT/SGPT) 318 U/L (14-59) Alkaline Phosphatase 172 U/L (46-116) Total Protein 6.9 g/dL (6.4-8.2) Albumin 3.0 g/dL (3.4-5.0) Albumin/Globulin Ratio 0.8 (1.0-1.7) LFT's noted Assessment/Plan POD 1 l/s jacque for ERCP tomorrow ОЛЕГ FRANKS MD May 19, 2019 16:05
[2019-05-19] MEDS: PANTOPRAZOLE 40 MG TABLET.DR. PO SCH (17:24)
[2019-05-19] MEDS: fentaNYL PF VIAL 100 MCG/2 ML VIAL IV PRN ×2 (17:24→21:01)
[2019-05-19 19:00] VITALS: BP 152/86
[2019-05-19 23:00] VITALS: BP 119/74
[2019-05-20] VITALS (12 sets, daily range): BP systolic 128–156; BP diastolic 83–98
[2019-05-20] MEDS: fentaNYL PF VIAL 100 MCG/2 ML VIAL IV PRN ×3 (04:08→13:08)
[2019-05-20] MEDS: HYDROmorphone 2 MG/ML VIAL IV PRN ×3 (06:14→17:05)
[2019-05-20] MEDS ORDERED: LIDOCAINE 1% PF 2 ML VIAL. ID PRN (06:45)
[2019-05-20] MEDS ORDERED: IV RINGERS,LACTATED 1000ML 1,000 ML IV SCH ×2 (06:45→07:00)
[2019-05-20] MEDS ORDERED: fentaNYL PF VIAL 100 MCG/2 ML VIAL IV PRN ×2 (06:45)
[2019-05-20] MEDS ORDERED: MIDAZOLAM HCL/PF 2 MG/2 ML VIAL. IV PRN (06:45)
[2019-05-20 07:04] LABS: ALBUMIN 3.1 g/dL (3.4-5.0); ALBUMIN/GLOBULIN RATIO 0.8 (1.0-1.7); CALCIUM 8.4 mg/dL (8.5-10.1); CREATININE 0.7 mg/dL (0.6-1.0); GFR 87.2; POTASSIUM 4.2 mmol/L (3.5-5.1); TOTAL BILIRUBIN 1.2 mg/dL (0.2-1.0); TOTAL PROTEIN 6.9 g/dL (6.4-8.2)
[2019-05-20] MEDS: PANTOPRAZOLE 40 MG TABLET.DR. PO SCH ×2 (07:30→16:13)
[2019-05-20] MEDS ORDERED: IOHEXOL 300 MG/ML 100ML VIAL. ONE (07:31)
--- NOTE | 2019-05-20 08:27 | PDOC ---
PROGRESS NOTES Chief Complaint Chief Complaint Symptomatic gallstones Morbid obesity MILD DEPRESSION Transaminitis Ileus History of Present Illness History of Present Illness Ms Serna is a 53yo F w/ PMHx GERD, depression who presents with abdominal pain, found with acute cholecystitis, went for uncomplicated, successful lap jacque 05/18/19, however intraoperative cholangiogram shows abrupt cut-off of dye in CBD without flow into the duodenum. 05/19: Severe pain with eating. KUB consistent with ileus. LFTs trending upward. Seen by GI on consultation for consideration of ERCP. Pain not responsive to 2mg dilaudid IV Has worse RUQ pain, states she normally tolerates pain well. No SOB or CP. IV fentanyl in addition to dilaudid helping. She needs to use the restroom now. Plan for ERCP per GI. Plan Consult GI for likely CBD obstruction, ERCP today Vitals Vitals Vital Signs Date Time Temp Pulse Resp B/P (MAP) Pulse Ox O2 Delivery O2 Flow Rate FiO2 05/20/19 06:19 18 95 Room Air 05/20/19 03:00 98.2 63 128/86 (100) 98.2 05/20/19 00:15 10.0 Physical Exam General: Alert, No acute distress Heart: Regular rate Abdomen: Other (POST OP DRESSING DRY) Extremities: No clubbing, No cyanosis Skin: No rashes, No breakdown Labs LABS Laboratory Tests Test 05/19/19 08:55 05/20/19 05:55 White Blood Count 8.7 x10^3/uL (4.0-11.0) Red Blood Count 4.72 x10^6/uL (3.50-5.40) Hemoglobin 11.9 g/dL (12.0-15.5) Hematocrit 36.5 % (36.0-47.0) Mean Corpuscular Volume 77 fL (79-100) Mean Corpuscular Hemoglobin 25 pg (25-35) Mean Corpuscular Hemoglobin Concent 33 g/dL (31-37) Red Cell Distribution Width 16.2 % (11.5-14.5) Platelet Count 444 x10^3/uL (140-400) Neutrophils (%) (Auto) 68 % (31-73) Lymphocytes (%) (Auto) 27 % (24-48) Monocytes (%) (Auto) 4 % (0-9) Eosinophils (%) (Auto) 1 % (0-3) Basophils (%) (Auto) 0 % (0-3) Neutrophils # (Auto) 5.9 x10^3/uL (1.8-7.7) Lymphocytes # (Auto) 2.4 x10^3/uL (1.0-4.8) Monocytes # (Auto) 0.3 x10^3/uL (0.0-1.1) Eosinophils # (Auto) 0.1 x10^3/uL (0.0-0.7) Basophils # (Auto) 0.0 x10^3/uL (0.0-0.2) Sodium Level 139 mmol/L (136-145) 139 mmol/L (136-145) Potassium Level 4.0 mmol/L (3.5-5.1) 4.2 mmol/L (3.5-5.1) Chloride Level 103 mmol/L (98-107) 104 mmol/L (98-107) Carbon Dioxide Level 26 mmol/L (21-32) 27 mmol/L (21-32) Anion Gap 10 (6-14) 8 (6-14) Blood Urea Nitrogen 5 mg/dL (7-20) 4 mg/dL (7-20) Creatinine 0.7 mg/dL (0.6-1.0) 0.7 mg/dL (0.6-1.0) Estimated GFR (Cockcroft-Gault) 87.2 87.2 BUN/Creatinine Ratio 7 (6-20) 6 (6-20) Glucose Level 130 mg/dL (70-99) 97 mg/dL (70-99) Calcium Level 8.7 mg/dL (8.5-10.1) 8.4 mg/dL (8.5-10.1) Total Bilirubin 0.8 mg/dL (0.2-1.0) 1.2 mg/dL (0.2-1.0) Direct Bilirubin 0.3 mg/dL (0.0-0.2) Aspartate Amino Transf (AST/SGOT) 214 U/L (15-37) 235 U/L (15-37) Alanine Aminotransferase (ALT/SGPT) 318 U/L (14-59) 358 U/L (14-59) Alkaline Phosphatase 172 U/L (46-116) 219 U/L (46-116) Total Protein 6.9 g/dL (6.4-8.2) 6.9 g/dL (6.4-8.2) Albumin 3.0 g/dL (3.4-5.0) 3.1 g/dL (3.4-5.0) Albumin/Globulin Ratio 0.8 (1.0-1.7) 0.8 (1.0-1.7) Lipase 97 U/L (73-393) Comment Review of Relevant I have reviewed the following items kirill (where applicable) has been applied. Labs Laboratory Tests Test 05/19/19 08:55 05/20/19 05:55 White Blood Count 8.7 x10^3/uL (4.0-11.0) Red Blood Count 4.72 x10^6/uL (3.50-5.40) Hemoglobin 11.9 g/dL (12.0-15.5) Hematocrit 36.5 % (36.0-47.0) Mean Corpuscular Volume 77 fL (79-100) Mean Corpuscular Hemoglobin 25 pg (25-35) Mean Corpuscular Hemoglobin Concent 33 g/dL (31-37) Red Cell Distribution Width 16.2 % (11.5-14.5) Platelet Count 444 x10^3/uL (140-400) Neutrophils (%) (Auto) 68 % (31-73) Lymphocytes (%) (Auto) 27 % (24-48) Monocytes (%) (Auto) 4 % (0-9) Eosinophils (%) (Auto) 1 % (0-3) Basophils (%) (Auto) 0 % (0-3) Neutrophils # (Auto) 5.9 x10^3/uL (1.8-7.7) Lymphocytes # (Auto) 2.4 x10^3/uL (1.0-4.8) Monocytes # (Auto) 0.3 x10^3/uL (0.0-1.1) Eosinophils # (Auto) 0.1 x10^3/uL (0.0-0.7) Basophils # (Auto) 0.0 x10^3/uL (0.0-0.2) Sodium Level 139 mmol/L (136-145) 139 mmol/L (136-145) Potassium Level 4.0 mmol/L (3.5-5.1) 4.2 mmol/L (3.5-5.1) Chloride Level 103 mmol/L (98-107) 104 mmol/L (98-107) Carbon Dioxide Level 26 mmol/L (21-32) 27 mmol/L (21-32) Anion Gap 10 (6-14) 8 (6-14) Blood Urea Nitrogen 5 mg/dL (7-20) 4 mg/dL (7-20) Creatinine 0.7 mg/dL (0.6-1.0) 0.7 mg/dL (0.6-1.0) Estimated GFR (Cockcroft-Gault) 87.2 87.2 BUN/Creatinine Ratio 7 (6-20) 6 (6-20) Glucose Level 130 mg/dL (70-99) 97 mg/dL (70-99) Calcium Level 8.7 mg/dL (8.5-10.1) 8.4 mg/dL (8.5-10.1) Total Bilirubin 0.8 mg/dL (0.2-1.0) 1.2 mg/dL (0.2-1.0) Direct Bilirubin 0.3 mg/dL (0.0-0.2) Aspartate Amino Transf (AST/SGOT) 214 U/L (15-37) 235 U/L (15-37) Alanine Aminotransferase (ALT/SGPT) 318 U/L (14-59) 358 U/L (14-59) Alkaline Phosphatase 172 U/L (46-116) 219 U/L (46-116) Total Protein 6.9 g/dL (6.4-8.2) 6.9 g/dL (6.4-8.2) Albumin 3.0 g/dL (3.4-5.0) 3.1 g/dL (3.4-5.0) Albumin/Globulin Ratio 0.8 (1.0-1.7) 0.8 (1.0-1.7) Lipase 97 U/L (73-393) Laboratory Tests Test 05/19/19 08:55 05/20/19 05:55 White Blood Count 8.7 x10^3/uL (4.0-11.0) Red Blood Count 4.72 x10^6/uL (3.50-5.40) Hemoglobin 11.9 g/dL (12.0-15.5) Hematocrit 36.5 % (36.0-47.0) Mean Corpuscular Volume 77 fL (79-100) Mean Corpuscular Hemoglobin 25 pg (25-35) Mean Corpuscular Hemoglobin Concent 33 g/dL (31-37) Red Cell Distribution Width 16.2 % (11.5-14.5) Platelet Count 444 x10^3/uL (140-400) Neutrophils (%) (Auto) 68 % (31-73) Lymphocytes (%) (Auto) 27 % (24-48) Monocytes (%) (Auto) 4 % (0-9) Eosinophils (%) (Auto) 1 % (0-3) Basophils (%) (Auto) 0 % (0-3) Neutrophils # (Auto) 5.9 x10^3/uL (1.8-7.7) Lymphocytes # (Auto) 2.4 x10^3/uL (1.0-4.8) Monocytes # (Auto) 0.3 x10^3/uL (0.0-1.1) Eosinophils # (Auto) 0.1 x10^3/uL (0.0-0.7) Basophils # (Auto) 0.0 x10^3/uL (0.0-0.2) Sodium Level 139 mmol/L (136-145) 139 mmol/L (136-145) Potassium Level 4.0 mmol/L (3.5-5.1) 4.2 mmol/L (3.5-5.1) Chloride Level 103 mmol/L (98-107) 104 mmol/L (98-107) Carbon Dioxide Level 26 mmol/L (21-32) 27 mmol/L (21-32) Anion Gap 10 (6-14) 8 (6-14) Blood Urea Nitrogen 5 mg/dL (7-20) 4 mg/dL (7-20) Creatinine 0.7 mg/dL (0.6-1.0) 0.7 mg/dL (0.6-1.0) Estimated GFR (Cockcroft-Gault) 87.2 87.2 BUN/Creatinine Ratio 7 (6-20) 6 (6-20) Glucose Level 130 mg/dL (70-99) 97 mg/dL (70-99) Calcium Level 8.7 mg/dL (8.5-10.1) 8.4 mg/dL (8.5-10.1) Total Bilirubin 0.8 mg/dL (0.2-1.0) 1.2 mg/dL (0.2-1.0) Direct Bilirubin 0.3 mg/dL (0.0-0.2) Aspartate Amino Transf (AST/SGOT) 214 U/L (15-37) 235 U/L (15-37) Alanine Aminotransferase (ALT/SGPT) 318 U/L (14-59) 358 U/L (14-59) Alkaline Phosphatase 172 U/L (46-116) 219 U/L (46-116) Total Protein 6.9 g/dL (6.4-8.2) 6.9 g/dL (6.4-8.2) Albumin 3.0 g/dL (3.4-5.0) 3.1 g/dL (3.4-5.0) Albumin/Globulin Ratio 0.8 (1.0-1.7) 0.8 (1.0-1.7) Lipase 97 U/L (73-393) Medications Current Medications Cefazolin Sodium 3 gm/Dextrose 100 ml @ 200 mls/hr 1X PREOP PRN IV protocol Last administered on 05/18/19at 13:13; Start 05/18/19 at 13:00; Stop 05/19/19 at 12:59; Status DC Glucagon (Glucagen) 1 mg STK-MED ONCE .ROUTE ; Start 05/18/19 at 11:37; Stop 05/18/19 at 12:38; Status DC Iohexol (Omnipaque 300 Mg/ml) 50 ml STK-MED ONCE .ROUTE ; Start 05/18/19 at 11:37; Stop 05/18/19 at 12:38; Status DC Cellulose (Surgicel Hemostat 4x8) 1 each STK-MED ONCE .ROUTE Last administered on 05/18/19at 13:52; Start 05/18/19 at 11:37; Stop 05/18/19 at 12:38; Status DC Bupivacaine HCl/ Epinephrine Bitart (Sensorcaine-Epi 0.25%-1:741043 Mpf) 30 ml STK-MED ONCE .ROUTE Last administered on 05/18/19at 13:47; Start 05/18/19 at 11:40; Stop 05/18/19 at 12:40; Status DC Ondansetron HCl (Zofran) 4 mg PRN Q6HRS PRN IV NAUSEA/VOMITING; Start 05/18/19 at 12:45; Stop 05/19/19 at 12:44; Status DC Fentanyl Citrate (Fentanyl 2ml Vial) 25 mcg PRN Q5MIN PRN IV MILD PAIN 1-3; Start 05/18/19 at 12:45; Stop 05/19/19 at 12:44; Status DC Fentanyl Citrate (Fentanyl 2ml Vial) 50 mcg PRN Q5MIN PRN IV MODERATE TO SEVERE PAIN Last administered on 05/18/19at 15:53; Start 05/18/19 at 12:45; Stop 05/19/19 at 12:44; Status DC Morphine Sulfate (Morphine Sulfate) 1 mg PRN Q10MIN PRN IV SEVERE PAIN 7-10 Last administered on 05/18/19at 15:53; Start 05/18/19 at 12:45; Stop 05/19/19 at 12:44; Status DC Ringer's Solution 1,000 ml @ 30 mls/hr Q24H IV ; Start 05/18/19 at 12:41; Stop 05/19/19 at 00:40; Status DC Lidocaine HCl (Xylocaine-Mpf 1% 2ml Vial) 2 ml 1X PRN PRN ID IV START; Start 05/18/19 at 12:45; Stop 05/19/19 at 12:44; Status DC Hydromorphone HCl (Dilaudid) 0.5 mg PRN Q10MIN PRN IV SEV PAIN, Second choice; Start 05/18/19 at 12:45; Stop 05/19/19 at 12:44; Status DC Prochlorperazine Edisylate (Compazine) 5 mg PACU PRN PRN IV NAUSEA, MRX1; Start 05/18/19 at 12:45; Stop 05/19/19 at 12:44; Status DC Propofol 20 ml @ As Directed STK-MED ONCE IV ; Start 05/18/19 at 12:52; Stop 05/18/19 at 12:53; Status DC Lidocaine HCl (Lidocaine Pf 2% Vial) 5 ml STK-MED ONCE .ROUTE ; Start 05/18/19 at 12:52; Stop 05/18/19 at 12:53; Status DC Fentanyl Citrate (Fentanyl 2ml Vial) 100 mcg STK-MED ONCE .ROUTE ; Start 05/18/19 at 12:52; Stop 05/18/19 at 12:53; Status DC Succinylcholine Chloride (Anectine) 200 mg STK-MED ONCE .ROUTE ; Start 05/18/19 at 12:52; Stop 05/18/19 at 12:53; Status DC Rocuronium [place] (Zemuron) 50 mg STK-MED ONCE .ROUTE ; Start 05/18/19 at 12:53; Stop 05/18/19 at 12:53; Status DC Ondansetron HCl (Zofran) 4 mg STK-MED ONCE .ROUTE ; Start 05/18/19 at 13:08; Stop 05/18/19 at 13:08; Status DC Dexamethasone Sodium Phosphate (Decadron) 4 mg STK-MED ONCE .ROUTE ; Start 05/18/19 at 13:08; Stop 05/18/19 at 13:08; Status DC Desflurane (Suprane) 60 ml STK-MED ONCE IH ; Start 05/18/19 at 13:08; Stop 05/18/19 at 13:08; Status DC Glycopyrrolate (Robinul) 1 mg STK-MED ONCE .ROUTE ; Start 05/18/19 at 13:17; Stop 05/18/19 at 13:17; Status DC Neostigmine Methylsulfate (Neostigmine Methylsulfate) 5 mg STK-MED ONCE .ROUTE ; Start 05/18/19 at 13:17; Stop 05/18/19 at 13:17; Status DC Ketorolac Tromethamine (Toradol For Or Only) 30 mg STK-MED ONCE INJ ; Start 05/18/19 at 13:43; Stop 05/18/19 at 13:43; Status DC Fentanyl Citrate (Fentanyl 2ml Vial) 100 mcg STK-MED ONCE .ROUTE ; Start 05/18/19 at 13:55; Stop 05/18/19 at 13:55; Status DC Diphenhydramine HCl (Benadryl) 25 mg PRN Q6HRS PRN PO ITCHING Last administered on 05/19/19at 01:24; Start 05/18/19 at 14:15 Enoxaparin Sodium (Lovenox 40mg Syringe) 40 mg Q24H SQ ; Start 05/18/19 at 15:00 Sodium Chloride (Normal Saline Flush) 3 ml QSHIFT PRN IV AFTER MEDS AND BLOOD DRAWS; Start 05/18/19 at 14:15 Potassium Chloride/Sodium Chloride 1,000 ml @ 100 mls/hr Q10H IV Last administered on 05/19/19 19:57; Start 05/18/19 at 14:12 Dextrose (Dextrose 50%-Water Syringe) 12.5 gm PRN Q15MIN PRN IV SEE COMMENTS; Start 05/18/19 at 14:15 Dextrose 250 ml PRN Q15MIN PRN IV SEE COMMENTS; Start 05/18/19 at 14:15 Oxycodone/ Acetaminophen (Percocet 5/325) 1 tab PRN Q4HRS PRN PO MILD PAIN, 1ST CHOICE Last administered on 05/18/19at 23:50; Start 05/18/19 at 14:15 Oxycodone/ Acetaminophen (Percocet 5/325) 2 tab PRN Q4HRS PRN PO MODERATE PAIN, SEVERE PAIN Last administered on 05/19/19 21:45; Start 05/18/19 at 14:15 Naloxone HCl (Narcan) 0.4 mg PRN Q2MIN PRN IV SEE INSTRUCTIONS; Start 05/18/19 at 14:15 Sodium Chloride 1,000 ml @ 25 mls/hr Q24H IV ; Start 05/18/19 at 14:12 Hydromorphone HCl (Dilaudid) 1 mg PRN Q4HRS PRN IV PAIN Last administered on 05/19/19 09:54; Start 05/18/19 at 14:15; Stop 05/19/19 at 13:31; Status DC Docusate Sodium (Colace) 100 mg BID PO Last administered on 05/19/19 19:57; Start 05/18/19 at 21:00 Ondansetron HCl (Zofran) 4 mg PRN Q6HRS PRN IV NAUESA, 1ST CHOICE Last administered on 05/19/19 19:57; Start 05/18/19 at 14:15 Fentanyl Citrate (Fentanyl 2ml Vial) 100 mcg STK-MED ONCE .ROUTE ; Start 05/18/19 at 14:26; Stop 05/18/19 at 14:27; Status DC Morphine Sulfate (Morphine Sulfate) 2 mg STK-MED ONCE .ROUTE ; Start 05/18/19 at 15:39; Stop 05/18/19 at 15:39; Status DC Pantoprazole Sodium (Protonix) 40 mg BIDAC PO Last administered on 05/19/19at 17:24; Start 05/19/19 at 16:30 Hydromorphone HCl (Dilaudid) 2 mg PRN Q4HRS PRN IV SEVERE PAIN Last administered on 05/20/19at 06:19; Start 05/19/19 at 13:30 Fentanyl Citrate (Fentanyl 2ml Vial) 75 mcg PRN Q3HRS PRN IV MODERATE PAIN Last administered on 05/20/19at 04:08; Start 05/19/19 at 16:30 Ringer's Solution 1,000 ml @ 50 mls/hr Q20H IV ; Start 05/20/19 at 07:00; Stop 05/20/19 at 18:59 Midazolam HCl (Versed) 2 mg PRN 1X PRN IV PRIOR TO PROCEDURE; Start 05/20/19 at 06:45; Stop 05/21/19 at 06:44 Fentanyl Citrate (Fentanyl 2ml Vial) 25 mcg PRN Q5MIN PRN IV X 2 DOSES FOR PAIN ; Start 05/20/19 at 06:45; Stop 05/21/19 at 06:44 Fentanyl Citrate (Fentanyl 2ml Vial) 50 mcg PRN Q5MIN PRN IV X 2 DOSES FOR PAIN ; Start 05/20/19 at 06:45; Stop 05/21/19 at 06:44 Ringer's Solution 1,000 ml @ 125 mls/hr Q8H IV ; Start 05/20/19 at 06:45; Stop 05/20/19 at 06:46; Status DC Lidocaine HCl (Xylocaine-Mpf 1% 2ml Vial) 2 ml 1X PRN PRN ID IV START; Start 05/20/19 at 06:45; Stop 05/21/19 at 06:44 Iohexol (Omnipaque 300 Mg/ml) 100 ml STK-MED ONCE .ROUTE ; Start 05/20/19 at 07:31; Stop 05/20/19 at 07:31; Status DC Vitals/I & O Vital Sign - Last 24 Hours 05/19/19 05/19/19 05/19/19 05/19/19 09:54 09:54 11:00 11:57 Temp 97.8 97.8 Pulse 78 Resp 16 B/P (MAP) 129/85 (100) Pulse Ox 97 O2 Delivery Room Air Room Air Room Air Room Air 05/19/19 05/19/19 05/19/19 05/19/19 13:13 14:04 15:00 15:15 Temp 97.8 97.8 Pulse 80 Resp 16 B/P (MAP) 119/81 (94) Pulse Ox 96 O2 Delivery Room Air Room Air Room Air Room Air 05/19/19 05/19/19 05/19/19 05/19/19 15:15 17:24 19:00 20:00 Temp 97.7 97.7 Pulse 77 Resp 16 B/P (MAP) 152/86 (108) Pulse Ox 98 O2 Delivery Room Air Room Air Room Air Room Air 05/19/19 05/19/19 05/19/19 05/19/19 20:03 21:02 21:16 21:45 Resp 15 14 14 Pulse Ox 98 98 98 O2 Delivery Room Air Room Air Room Air Room Air 05/19/19 05/19/19 05/19/19 05/20/19 22:40 22:47 23:00 00:15 Temp 97.7 97.7 Pulse 76 Resp 16 18 16 14 B/P (MAP) 119/74 (89) Pulse Ox 98 98 94 94 O2 Delivery Room Air Room Air Room Air Room Air O2 Flow Rate 10.0 10.0 05/20/19 05/20/19 05/20/19 05/20/19 03:00 04:08 04:39 06:19 Temp 98.2 98.2 Pulse 63 Resp 16 26 18 18 B/P (MAP) 128/86 (100) Pulse Ox 95 93 93 95 O2 Delivery Room Air Room Air Room Air Room Air Intake and Output 05/19/19 05/19/19 05/20/19 14:59 22:59 06:59 Intake Total 100 ml Output Total 1030 ml 880 ml 2850 ml Balance -1030 ml -880 ml -2750 ml JACKIE ADAMSON MD May 20, 2019 08:27
[2019-05-20] MEDS: DOCUSATE SODIUM 100 MG CAPSULE. PO SCH ×2 (08:47→21:10)
[2019-05-20 08:50] LABS: HEMATOCRIT 36.9 % (36.0-47.0); RED BLOOD COUNT 4.71 x10^6/uL (3.50-5.40); RED CELL DISTRIBUTION WIDTH 16.2 % (11.5-14.5); WHITE BLOOD COUNT 6.8 x10^3/uL (4.0-11.0)
[2019-05-20] MEDS: POTASSIUM CL 20MEQ-0.45% NACL 1,000 ML IV SCH ×2 (08:52→15:10)
[2019-05-20 09:01] LABS: PROTHROMBIN TIME PATIENT 13.1 SEC (11.7-14.0)
[2019-05-20] MEDS ORDERED: SUCCINYLCHOLINE 200 MG/10 ML VIAL. ONE (10:58)
[2019-05-20] MEDS ORDERED: ONDANSETRON PF 4 MG/2 ML VIAL. ONE (10:59)
[2019-05-20] MEDS ORDERED: ePHEDrine PF IN SALINE 50 MG/10 ML SYRINGE. IV ONE (10:59)
[2019-05-20] MEDS ORDERED: PROPOFOL 20 ML IV ONE (10:59)
[2019-05-20] MEDS ORDERED: DEXAMETHASONE SOD PHOS 4 MG/ML VIAL ONE (10:59)
[2019-05-20] MEDS ORDERED: LIDOCAINE 2% PF 5 ML VIAL. ONE (10:59)
[2019-05-20] MEDS: ONDANSETRON PF 4 MG/2 ML VIAL. IV PRN ×2 (13:18→19:14)
[2019-05-20] MEDS: IV NORMAL SALINE 1000ML BAG 1,000 ML IV SCH (14:12)
[2019-05-20] MEDS ORDERED: IOHEXOL 300 MG/ML 100ML VIAL. IV ONE (14:50)
[2019-05-20] MEDS: ENOXAPARIN 40 MG/0.4 ML SYRINGE. SQ SCH (15:00)
--- NOTE | 2019-05-20 15:07 | PDOC4 ---
Operative Note Operative Note ERCP with sphincterotomy/stone extraction Meds propofol per anesthesia Pre-op dx abnl IOC/retained CBD stone Post-op dx s/p extraction CBD stone with sphincterotomy Plan labs in am advance diet if no complications with above . MANDY CABRERA MD May 20, 2019 15:07
--- NOTE | 2019-05-20 17:44 | RAD ---
EXAM: ERCP. HISTORY: Common duct stone. FINDINGS: 7 fluoroscopic images of the biliary tree are obtained during ERCP. Fluoroscopy time 2 minutes 5 seconds. These demonstrate cannulation of the biliary tree and injection of contrast. Later images demonstrate changes of balloon sweep of choledocholithiasis. Cholecystectomy clips are noted. Refer to the operative report for full detail. Electronically signed by: Stella Walton MD (05/20/2019 5:41 PM) [facility]
--- NOTE | 2019-05-20 18:06 | PATHOLOGY ---
[facility] Accession Number: [id number] . 01 Material submitted: . gallbladder - GALLBLADDER WITH CONTENTS . 01 Clinical history: . Cholelithiasis . 02 Diagnosis: Gallbladder, cholecystectomy: - Cholelithiasis. - Cholesterolosis. - Chronic and focal acute cholecystitis with increased eosinophils. LB/05/20/2019 . 02 Comment: There is no evidence of malignancy. (JPM/db; 05/20/2019) . 02 Electronically signed: . Jem Ortiz MD, Pathologist NPI- [id number] . 01 Gross description: . The specimen is received in formalin, labeled "Kareem, Torri, gallbladder with contents, is focally disrupted and partially collapsed gallbladder measuring 8.0 cm in length and 3.7 cm in maximum diameter with a wang serosa. The cystic duct is impacted by calculi and is dilated. The gallbladder lumen contains wang-brown bile and multiple yellow bosselated calculi measuring 1.5 x 1.2 x 0.5 cm in aggregate. The mucosa is wang-brown focally hemorrhagic and with cholesterolosis. The wall is edematous, 0.2 cm in average thickness. Representatively submitted in A1. ([facility]; 05/19/2019) [facility]S . 02 Pathologist provided ICD-10: K80.12, K82.4 . 02 CPT . 459785 Specimen Comment: A courtesy copy of this report has been sent to Specimen Comment: [phone], , . Specimen Comment: Report sent to ,DR BLANDON / DR MORGAN Performed at: 01 [facility] [address] [place] [address] [address], [place] [id number] MD Ilan Licona MD Phone: [phone] Performed at: [address] [id number] MD Jem Ortiz MD Phone: [phone]
[2019-05-20] MEDS ORDERED: POLYETHYLENE GLYCOL 3350 17 GM PACKET. PO SCH (21:00)
[2019-05-20] MEDS ORDERED: PSYLLIUM HUSK (SUGAR FREE) 1 PKT PACKET PO SCH (21:00)
[2019-05-20] MEDS: oxyCODONE/APAP 5/325 1 TAB TABLET PO PRN (21:11)
[2019-05-20] MEDS: diphenhydrAMINE HCL 25 MG CAPSULE PO PRN (21:21)
[2019-05-21] MEDS: POTASSIUM CL 20MEQ-0.45% NACL 1,000 ML IV SCH ×3 (01:20→13:03)
[2019-05-21 03:00] VITALS: BP 128/93
[2019-05-21] MEDS: oxyCODONE/APAP 5/325 1 TAB TABLET PO PRN ×3 (03:18→15:48)
[2019-05-21] MEDS: PANTOPRAZOLE 40 MG TABLET.DR. PO SCH ×2 (05:40→15:48)
[2019-05-21 07:00] VITALS: BP 147/95
[2019-05-21] MEDS: DOCUSATE SODIUM 100 MG CAPSULE. PO SCH (08:17)
[2019-05-21 08:39] LABS: ALBUMIN 3.3 g/dL (3.4-5.0); ALBUMIN/GLOBULIN RATIO 0.8 (1.0-1.7); CALCIUM 8.9 mg/dL (8.5-10.1); CREATININE 0.7 mg/dL (0.6-1.0); GFR 87.2; POTASSIUM 3.7 mmol/L (3.5-5.1); TOTAL BILIRUBIN 0.8 mg/dL (0.2-1.0); TOTAL PROTEIN 7.4 g/dL (6.4-8.2)
[2019-05-21] MEDS: diphenhydrAMINE HCL 25 MG CAPSULE PO PRN (09:06)
--- NOTE | 2019-05-21 09:49 | PDOC ---
Subjective: Subjective: Getting ready to take a shower, doing better, would like to eat more. Some mild epigastric discomfort, drain is bothersome, also notes some right hip and leg pain with walking - wonders if she just has been laying around too much. Passing gas, no n/v. Objective: Objective: D/w nurse in room w/ pt, then paged by nurse later on and discussed again. Vital Signs: Vital Signs Date Time Temp Pulse Resp B/P (MAP) Pulse Ox O2 Delivery O2 Flow Rate FiO2 05/21/19 09:06 Room Air 05/21/19 07:00 98.4 98 20 147/95 (112) 96 98.4 05/20/19 15:27 5 Labs: Laboratory Tests Test 05/21/19 07:30 Sodium Level 138 mmol/L Potassium Level 3.7 mmol/L Chloride Level 100 mmol/L Carbon Dioxide Level 24 mmol/L Anion Gap 14 Blood Urea Nitrogen 6 mg/dL Creatinine 0.7 mg/dL Estimated GFR (Cockcroft-Gault) 87.2 BUN/Creatinine Ratio 9 Glucose Level 103 mg/dL Calcium Level 8.9 mg/dL Total Bilirubin 0.8 mg/dL Aspartate Amino Transf (AST/SGOT) 107 U/L Alanine Aminotransferase (ALT/SGPT) 326 U/L Alkaline Phosphatase 241 U/L Total Protein 7.4 g/dL Albumin 3.3 g/dL Albumin/Globulin Ratio 0.8 Amylase Level 474 U/L Lipase 1904 U/L Imaging: ERCP with sphincterotomy/stone extraction s/p extraction CBD stone with sphincterotomy PE: GEN: NAD, up to chair LUNGS: CTAB HEART: RRR ABD: mild epigastric discomfort tracking to drain site NEURO/PSYCH: A & O �3 A/P: Choledocholithiasis s/p ERCP w/ stone extraction -- Elevated lipase post-ERCP - reviewed w/ brandon Wu to [facility]. MATT HARTLEY May 21, 2019 09:49
[2019-05-21 11:00] VITALS: BP 126/77
[2019-05-21] MEDS: IV NORMAL SALINE 1000ML BAG 1,000 ML IV SCH (12:15)
[2019-05-21] MEDS: ONDANSETRON PF 4 MG/2 ML VIAL. IV PRN (12:29)
[2019-05-21] MEDS: HYDROmorphone 2 MG/ML VIAL IV PRN (12:29)
[2019-05-21] MEDS ORDERED: PANT40TA77 PO (13:22)
[2019-05-21] MEDS ORDERED: OXYC1TAB15 PO (13:22)
--- NOTE | 2019-05-21 13:27 | PDOC3 ---
Discharge Summary Visit Information Date of Admission: May 18, 2019 Date of Discharge: May 21, 2019 Admitting Diagnosis: Acute abdominal pain Final Diagnosis Choledocholithiasis Brief Hospital Course Allergies Allergies Coded Allergies Type Severity Reaction Last Updated Verified No Known Drug Allergies 05/20/19 No Vital Signs Vital Signs Date Time Temp Pulse Resp B/P (MAP) Pulse Ox O2 Delivery O2 Flow Rate FiO2 05/21/19 13:04 Room Air 05/21/19 11:00 98.4 90 20 126/77 (93) 97 98.4 05/21/19 08:15 5.0 Lab Results Laboratory Tests Test 05/20/19 05:55 05/21/19 07:30 White Blood Count 6.8 x10^3/uL (4.0-11.0) Red Blood Count 4.71 x10^6/uL (3.50-5.40) Hemoglobin 12.0 g/dL (12.0-15.5) Hematocrit 36.9 % (36.0-47.0) Mean Corpuscular Volume 78 fL (79-100) Mean Corpuscular Hemoglobin 25 pg (25-35) Mean Corpuscular Hemoglobin Concent 32 g/dL (31-37) Red Cell Distribution Width 16.2 % (11.5-14.5) Platelet Count 439 x10^3/uL (140-400) Prothrombin Time 13.1 SEC (11.7-14.0) Prothromb Time International Ratio 1.0 (0.8-1.1) Sodium Level 139 mmol/L (136-145) 138 mmol/L (136-145) Potassium Level 4.2 mmol/L (3.5-5.1) 3.7 mmol/L (3.5-5.1) Chloride Level 104 mmol/L (98-107) 100 mmol/L (98-107) Carbon Dioxide Level 27 mmol/L (21-32) 24 mmol/L (21-32) Anion Gap 8 (6-14) 14 (6-14) Blood Urea Nitrogen 4 mg/dL (7-20) 6 mg/dL (7-20) Creatinine 0.7 mg/dL (0.6-1.0) 0.7 mg/dL (0.6-1.0) Estimated GFR (Cockcroft-Gault) 87.2 87.2 BUN/Creatinine Ratio 6 (6-20) 9 (6-20) Glucose Level 97 mg/dL (70-99) 103 mg/dL (70-99) Calcium Level 8.4 mg/dL (8.5-10.1) 8.9 mg/dL (8.5-10.1) Total Bilirubin 1.2 mg/dL (0.2-1.0) 0.8 mg/dL (0.2-1.0) Aspartate Amino Transf (AST/SGOT) 235 U/L (15-37) 107 U/L (15-37) Alanine Aminotransferase (ALT/SGPT) 358 U/L (14-59) 326 U/L (14-59) Alkaline Phosphatase 219 U/L (46-116) 241 U/L (46-116) Total Protein 6.9 g/dL (6.4-8.2) 7.4 g/dL (6.4-8.2) Albumin 3.1 g/dL (3.4-5.0) 3.3 g/dL (3.4-5.0) Albumin/Globulin Ratio 0.8 (1.0-1.7) 0.8 (1.0-1.7) Lipase 97 U/L (73-393) 1904 U/L (73-393) Amylase Level 474 U/L (25-115) Laboratory Tests Test 05/21/19 07:30 Sodium Level 138 mmol/L (136-145) Potassium Level 3.7 mmol/L (3.5-5.1) Chloride Level 100 mmol/L (98-107) Carbon Dioxide Level 24 mmol/L (21-32) Anion Gap 14 (6-14) Blood Urea Nitrogen 6 mg/dL (7-20) Creatinine 0.7 mg/dL (0.6-1.0) Estimated GFR (Cockcroft-Gault) 87.2 BUN/Creatinine Ratio 9 (6-20) Glucose Level 103 mg/dL (70-99) Calcium Level 8.9 mg/dL (8.5-10.1) Total Bilirubin 0.8 mg/dL (0.2-1.0) Aspartate Amino Transf (AST/SGOT) 107 U/L (15-37) Alanine Aminotransferase (ALT/SGPT) 326 U/L (14-59) Alkaline Phosphatase 241 U/L (46-116) Total Protein 7.4 g/dL (6.4-8.2) Albumin 3.3 g/dL (3.4-5.0) Albumin/Globulin Ratio 0.8 (1.0-1.7) Amylase Level 474 U/L (25-115) Lipase 1904 U/L (73-393) Brief Hospital Course Ms Serna is a 53yo F w/ PMHx GERD, depression who presents with abdominal pain, found with acute cholecystitis, went for uncomplicated, successful lap jacque 05/18/19, however intraoperative cholangiogram shows abrupt cut-off of dye in CBD without flow into the duodenum. 05/19: Severe pain with eating. KUB consistent with ileus. LFTs trending upward. Seen by GI on consultation for consideration of ERCP. Pain not responsive to 2mg dilaudid IV Has worse RUQ pain, states she normally tolerates pain well. No SOB or CP. IV fentanyl in addition to dilaudid helping. She needs to use the restroom now. S/p ERCP with sphincterotomy with stone extraction per GI on 05/20/19 with mild post procedural lipase elevation, given low fat. Plan Consult GI for likely CBD obstruction, ERCP today Symptomatic gallstones Morbid obesity MILD DEPRESSION Transaminitis Ileus Vital Signs - Stable Physical Exam General: Alert, No acute distress Heart: Regular rate Abdomen: Other (POST OP DRESSING DRY) Extremities: No clubbing, No cyanosis Skin: No rashes, No breakdown Greater than 30 minutes spent on discharge. Discharge Information Condition at Discharge: Improved Follow Up: Weeks Disposition/Orders: D/C to Home Scheduled Pantoprazole Sodium (Pantoprazole Sodium ) 40 Mg Tablet.dr, 40 MG PO BIDAC for GERD for 30 Days, #60 Prescribed by: JACKIE ADAMSON MD on 05/21/19 1322 Scheduled PRN Oxycodone/Apap 5-325 (Percocet 5-325 Mg Tablet ) 1 Each Tablet, 1-2 TAB PO PRN Q4HRS PRN for MILD PAIN, 1ST CHOICE for 6 Days, #20 Prescribed by: JACKIE ADAMSON MD on 05/21/19 1322 JACKIE ADAMSON MD May 21, 2019 13:27
[2019-05-21 15:00] VITALS: BP 113/72
[2019-05-21] MEDS: ENOXAPARIN 40 MG/0.4 ML SYRINGE. SQ SCH (15:49)
--- NOTE | 2019-05-21 16:33 | DISCH ---
DISCHARGE INSTRUCTIONS Condition on Discharge Condition on Discharge: Stable Activity After Discharge Activity Instructions for Disc: Activity as tolerated, Avoid exertion Lifting Instructions after Dis: No heavy lifting Driving Instructions after Dis: Do not drive Diet after Discharge Diet after Discharge: Regular Wound Incision Care Other wound/incision instructi: monitor VENITA output, february shower Follow-Up Follow up with: Colby Friday with VENITA output ОЛЕГ FRAKNS MD May 21, 2019 16:33
--- NOTE | 2019-05-21 16:38 | PDOC ---
SURGICAL PROGRESS NOTE Subjective feels well asking to go home per pt has been told it's OK with IPC and GI Vital Signs Vital Signs Date Time Temp Pulse Resp B/P (MAP) Pulse Ox O2 Delivery O2 Flow Rate FiO2 05/21/19 15:49 Room Air 05/21/19 15:00 97.8 89 16 113/72 (86) 99 97.8 05/21/19 08:15 5.0 I&O Intake and Output 05/21/19 07:00 Intake Total 1360 ml Output Total 60 ml Balance 1300 ml Intake Oral 360 ml IV Total 1000 ml Drainage Total 60 ml # Voids 4 PATIENT HAS A GILL: No General: Alert, Oriented X3, No acute distress Abdomen: Soft, Other (VENITA with dark return (surgicell vs bile)) Labs Laboratory Tests Test 05/20/19 05:55 05/21/19 07:30 White Blood Count 6.8 x10^3/uL (4.0-11.0) Red Blood Count 4.71 x10^6/uL (3.50-5.40) Hemoglobin 12.0 g/dL (12.0-15.5) Hematocrit 36.9 % (36.0-47.0) Mean Corpuscular Volume 78 fL (79-100) Mean Corpuscular Hemoglobin 25 pg (25-35) Mean Corpuscular Hemoglobin Concent 32 g/dL (31-37) Red Cell Distribution Width 16.2 % (11.5-14.5) Platelet Count 439 x10^3/uL (140-400) Prothrombin Time 13.1 SEC (11.7-14.0) Prothromb Time International Ratio 1.0 (0.8-1.1) Sodium Level 139 mmol/L (136-145) 138 mmol/L (136-145) Potassium Level 4.2 mmol/L (3.5-5.1) 3.7 mmol/L (3.5-5.1) Chloride Level 104 mmol/L (98-107) 100 mmol/L (98-107) Carbon Dioxide Level 27 mmol/L (21-32) 24 mmol/L (21-32) Anion Gap 8 (6-14) 14 (6-14) Blood Urea Nitrogen 4 mg/dL (7-20) 6 mg/dL (7-20) Creatinine 0.7 mg/dL (0.6-1.0) 0.7 mg/dL (0.6-1.0) Estimated GFR (Cockcroft-Gault) 87.2 87.2 BUN/Creatinine Ratio 6 (6-20) 9 (6-20) Glucose Level 97 mg/dL (70-99) 103 mg/dL (70-99) Calcium Level 8.4 mg/dL (8.5-10.1) 8.9 mg/dL (8.5-10.1) Total Bilirubin 1.2 mg/dL (0.2-1.0) 0.8 mg/dL (0.2-1.0) Aspartate Amino Transf (AST/SGOT) 235 U/L (15-37) 107 U/L (15-37) Alanine Aminotransferase (ALT/SGPT) 358 U/L (14-59) 326 U/L (14-59) Alkaline Phosphatase 219 U/L (46-116) 241 U/L (46-116) Total Protein 6.9 g/dL (6.4-8.2) 7.4 g/dL (6.4-8.2) Albumin 3.1 g/dL (3.4-5.0) 3.3 g/dL (3.4-5.0) Albumin/Globulin Ratio 0.8 (1.0-1.7) 0.8 (1.0-1.7) Lipase 97 U/L (73-393) 1904 U/L (73-393) Amylase Level 474 U/L (25-115) Laboratory Tests Test 05/21/19 07:30 Sodium Level 138 mmol/L (136-145) Potassium Level 3.7 mmol/L (3.5-5.1) Chloride Level 100 mmol/L (98-107) Carbon Dioxide Level 24 mmol/L (21-32) Anion Gap 14 (6-14) Blood Urea Nitrogen 6 mg/dL (7-20) Creatinine 0.7 mg/dL (0.6-1.0) Estimated GFR (Cockcroft-Gault) 87.2 BUN/Creatinine Ratio 9 (6-20) Glucose Level 103 mg/dL (70-99) Calcium Level 8.9 mg/dL (8.5-10.1) Total Bilirubin 0.8 mg/dL (0.2-1.0) Aspartate Amino Transf (AST/SGOT) 107 U/L (15-37) Alanine Aminotransferase (ALT/SGPT) 326 U/L (14-59) Alkaline Phosphatase 241 U/L (46-116) Total Protein 7.4 g/dL (6.4-8.2) Albumin 3.3 g/dL (3.4-5.0) Albumin/Globulin Ratio 0.8 (1.0-1.7) Amylase Level 474 U/L (25-115) Lipase 1904 U/L (73-393) amylase, lipase noted Assessment/Plan po lap jacque and ERCP home today f/u with drain output Friday ОЛЕГ FRANKS MD May 21, 2019 16:38
--- NOTE | 2019-05-21 17:40 | NUR ---
Pt was discharged to home at 1730 today in stable condition with all personal belongings after reviewing all pertinent information including education, medications, follow up and at home care. Pt was escorted by staff and driven home by her
== END 2019-05-21 17:25 | disposition home or self-care (01) | DRG 417 ==
LOC: 4 NORTH 12:34
PROVIDERS: ADMIT Internal Medicine; ATTEND Internal Medicine
PROC: BF101ZZ Fluoroscopy of Bile Ducts using Low Osmolar Contrast (ICD-10-PCS; 2019-05-18)
PROC: 0FT44ZZ Resection of Gallbladder, Percutaneous Endoscopic Approach (ICD-10-PCS; principal; 2019-05-18 13:30)
PROC: 0FC98ZZ Extirpation of Matter from Common Bile Duct, Via Natural or Artificial Opening Endoscopic (ICD-10-PCS; 2019-05-20)
PROC: BF101ZZ Fluoroscopy of Bile Ducts using Low Osmolar Contrast (ICD-10-PCS; 2019-05-20)
DX: K80.67 Calculus of gallbladder and bile duct with acute and chronic cholecystitis with obstruction (principal); K85.90 Acute pancreatitis without necrosis or infection, unspecified; E44.0 Moderate protein-calorie malnutrition; K56.7 Ileus, unspecified; E03.9 Hypothyroidism, unspecified; E66.01 Morbid (severe) obesity due to excess calories; F32.9 Major depressive disorder, single episode, unspecified; K21.9 Gastro-esophageal reflux disease without esophagitis; K57.90 Diverticulosis of intestine, part unspecified, without perforation or abscess without bleeding; Z82.49 Family history of ischemic heart disease and other diseases of the circulatory system; Z68.39 Body mass index [BMI] 39.0-39.9, adult
CPT/HCPCS: 36415; 43262; 43264; 74018; 74300; 74328; 80053; 82150; 82248; 83690; 85025; 85027; 85610; 88304; A7015; J0171; J0330; J0690; J1100; J1170; J1610; J1650; J1885; J2001; J2270; J2405; J2704; J2710; J3010; J3490; J7030; J7120; Q0163; Q9967; G0378